=== PATIENT | male | born 1955 | race Two or more races ===

== ENCOUNTER 2018-08-29 08:43 | Inpatient (IN) | payer OTHER ==
[~2018-08-29] VITALS: Ht 167.6 cm; Wt 81.6 kg
--- NOTE | 2018-08-29 08:43 | NUR ---
ED Nurse Note: BROUGHT IN BY [facility] FROM HOME DUE TO CP, NON-RADIATING, 04/09. A/OX4. PER PT, PAIN IS NOW ALL OVER THE BODY. 325MG ASPIRIN AND 0.4MG NITRO GIVEN BY EMS. NO RHYTHM STRIP CAME WITH THE EMS. CLONIDINE PATCHES NOTED ON THE BILATREAL SHOULDER. PT IS SMILING, JOKING. NO S/S OF SOB AND NO FACIAL GRIMACE NOTED AT THIS TIME. WILL CONTINUE TO MONITOR.
[2018-08-29 08:45] VITALS: BP 145/77
--- NOTE | 2018-08-29 08:50 | NUR ---
ED Nurse Note: BLOOD SPECIMENS COLLECTED BY KAMILEL HUI. SENT DOWN TO THE LAB.
[2018-08-29] MEDS ORDERED: NORTRIPTYLINE H25 M1 PO (08:55)
[2018-08-29] MEDS ORDERED: CLONIDINE1 EAC2 TD (08:55)
[2018-08-29] MEDS ORDERED: SYNTHROID100 MCG ORAL (08:55)
[2018-08-29] MEDS ORDERED: FUROSEMIDE40 MG ORAL (08:55)
[2018-08-29] MEDS ORDERED: BENAZEPRIL HCL40 MG ORAL (08:55)
[2018-08-29] MEDS ORDERED: ELIQUIS5 MG PO (08:55)
[2018-08-29] MEDS ORDERED: SOTALOL PO (08:55)
[2018-08-29] MEDS ORDERED: FISH OIL CAP1000 MG ORAL (08:55)
[2018-08-29] MEDS ORDERED: FOLIC ACID1 M1 PO (08:55)
[2018-08-29] MEDS ORDERED: ASPIRIN-LOW81 MG ORAL (08:55)
[2018-08-29] MEDS ORDERED: LOSARTAN POTAS100 MG ORAL (08:55)
[2018-08-29] MEDS ORDERED: DOK100 M1 PO (08:55)
[2018-08-29] MEDS ORDERED: PROCARDIA XL60 MG ORAL (08:55)
[2018-08-29] MEDS ORDERED: TAMSULOSIN HCL0.4 MG ORAL (08:55)
--- NOTE | 2018-08-29 09:08 | NUR ---
ED Nurse Note: PT REPORTS TO TAKE BASAGLAR 0.8MG DAILY INSULIN FOR DM 2. UNABLE TO INPUT MED RECON FOR THIS MED AT THIS TIME.
[2018-08-29 09:11] LABS: HEMOGLOBIN 11.2 G/DL (14.2-18.0); MEAN CORPUSCULAR VOLUME 78 FL (80-99); PLATELET COUNT 196 K/UL (150-450); RED BLOOD COUNT 4.37 M/UL (4.70-6.10); RED CELL DISTRIBUTION WIDTH 12.9 % (11.6-14.8); WHITE BLOOD COUNT 16.8 K/UL (4.8-10.8)
[2018-08-29 09:24] LABS: ANION GAP 9 mmol/L (5-15); BLOOD UREA NITROGEN 71 mg/dL (7-18); CALCIUM 8.9 MG/DL (8.5-10.1); CARBON DIOXIDE 27 MMOL/L (21-32); CHLORIDE 106 MMOL/L (98-107); SODIUM 142 MMOL/L (136-145)
--- NOTE | 2018-08-29 09:35 | NUR ---
ED Nurse Note: EDUCATED PT THAT URINE NEEDS TO BE COLLECTED, PT VERBALIZED UNDERSTANDING.
[2018-08-29 09:37] LABS: ALANINE AMINOTRANSFERASE 19 U/L (12-78); ALBUMIN 2.9 G/DL (3.4-5.0); ALBUMIN/GLOBULIN RATIO 0.8 (1.0-2.7); ALKALINE PHOSPHATASE 87 U/L (46-116); ASPARTATE AMINO TRANSFERASE 14 U/L (15-37); BILIRUBIN,TOTAL 0.5 MG/DL (0.2-1.0); CKMB 0.6 NG/ML (0.0-3.6); CREATINE KINASE 67 U/L (26-308)
--- NOTE | 2018-08-29 09:43 | Diagnostic Imaging Report ---
Indication: Chest pain Technique: One view of the chest Comparison: none Findings: Lungs and pleural spaces are clear. Heart size is upper limits of normal Impression: No acute process
--- NOTE | 2018-08-29 10:05 | NUR ---
ED Nurse Note: URINE COLLECTED AND SENT DOWN TO THE LAB.
[2018-08-29 10:12] LABS: APPEARANCE,URINE CLEAR; BILIRUBIN, URINE NEGATIVE (NEGATIVE); COLOR,URINE PALE YELLOW; GLUCOSE, URINE (UA) NEGATIVE (NEGATIVE); KETONES,URINE NEGATIVE (NEGATIVE); LEUKOCYTE ESTERASE ,URINE NEGATIVE (NEGATIVE); NITRITE,URINE NEGATIVE (NEGATIVE); PH,URINE 5 (4.5-8.0); PROTEIN,URINE 4+ (NEGATIVE); UROBILINOGEN,URINE NORMAL MG/DL (0.0-1.0)
--- NOTE | 2018-08-29 10:22 | Emergency Room Report ---
History of Present Illness General Chief Complaint: Chest Pain Source: Patient Present Illness HPI This patient states that he has had chest pain and abdominal pain for the past 2 days. He describes the chest pain as left-sided and the abdominal pain is diffuse. He denies fever or chills. He has had nausea but denies vomiting. He denies cough or congestion. He denies dysuria or hematuria. He has no other complaints. Allergies: Coded Allergies: No Known Allergies (Unverified , 08/29/18) Patient History Past Medical History: see triage record, DM, HTN, CAD, AFib, renal disease Social History: Denies: smoking, alcohol use, drug use Reviewed Nursing Documentation: PMH: Agreed; PSxH: Agreed Nursing Documentation-PMH Past Medical History: No History, Except For Hx Diabetes: Yes - DM2 Hx Dialysis: No - CKD Review of Systems All Other Systems: negative except mentioned in HPI Physical Exam Vital Signs Date Time Temp Pulse Resp B/P (MAP) Pulse Ox O2 Delivery O2 Flow Rate FiO2 08/29/18 08:43 98.1 80 18 184/83 98 Room Air Sp02 EP Interpretation: reviewed, normal General Appearance: no apparent distress, alert, GCS 15, non-toxic Head: normocephalic, atraumatic Eyes: bilateral eye normal inspection, bilateral eye PERRL ENT: hearing grossly normal, normal pharynx, no angioedema, normal voice Neck: full range of motion, supple/symm/no masses Respiratory: chest non-tender, lungs clear, normal breath sounds, no respiratory distress, no retraction, no accessory muscle use, speaking full sentences Cardiovascular #1: regular rate, rhythm, no edema Gastrointestinal: normal bowel sounds, soft, non-distended, no guarding, no rebound, tenderness - TTP in the mid abdomen Rectal: deferred Musculoskeletal: back normal, gait/station normal, normal range of motion, non- tender Neurologic: alert, oriented x3, responsive, motor strength/tone normal, sensory intact, speech normal Psychiatric: judgement/insight normal, memory normal, mood/affect normal, no suicidal/homicidal ideation Skin: normal color, no rash, warm/dry, well hydrated Medical Decision Making Diagnostic Impression: Primary Impression: Chest pain Additional Impressions: Abdominal pain Kidney mass Renal insufficiency ER Course This patient presents with all over chest pain and abdominal pain. The patient does have a history of coronary artery disease. He has a murmur on exam. Initial cardiac workup is unremarkable. This includes troponin, EKG, chest x- ray. The patient underwent CT of the abdomen and pelvis given his abdominal pain. She is a noncontrast CT because of the patient's renal function. There is a renal lesion on the right and a possible left renal lesion. This was not able to be fully assessed without IV contrast. Patient will be admitted for further evaluation, monitoring and treatment of his chest pain and abdominal pain. The patient's insurance company requested his transfer. He is stable for transfer. Laboratory Tests Test 08/29/18 09:02 08/29/18 10:00 White Blood Count 16.8 K/UL (4.8-10.8) H Red Blood Count 4.37 M/UL (4.70-6.10) L Hemoglobin 11.2 G/DL (14.2-18.0) L Hematocrit 34.0 % (42.0-52.0) L Mean Corpuscular Volume 78 FL (80-99) L Mean Corpuscular Hemoglobin 25.7 PG (27.0-31.0) L Mean Corpuscular Hemoglobin Concent 33.0 G/DL (32.0-36.0) Red Cell Distribution Width 12.9 % (11.6-14.8) Platelet Count 196 K/UL (150-450) Mean Platelet Volume 6.0 FL (6.5-10.1) L Neutrophils (%) (Auto) % (45.0-75.0) Lymphocytes (%) (Auto) % (20.0-45.0) Monocytes (%) (Auto) % (1.0-10.0) Eosinophils (%) (Auto) % (0.0-3.0) Basophils (%) (Auto) % (0.0-2.0) Differential Total Cells Counted 100 Neutrophils % (Manual) 93 % (45-75) H Lymphocytes % (Manual) 1 % (20-45) L Monocytes % (Manual) 6 % (1-10) Eosinophils % (Manual) 0 % (0-3) Basophils % (Manual) 0 % (0-2) Band Neutrophils 0 % (0-8) Platelet Estimate Adequate Platelet Morphology Normal Microcytosis 1+ Sodium Level 142 MMOL/L (136-145) Potassium Level 3.0 MMOL/L (3.5-5.1) L Chloride Level 106 MMOL/L (98-107) Carbon Dioxide Level 27 MMOL/L (21-32) Anion Gap 9 mmol/L (5-15) Blood Urea Nitrogen 71 mg/dL (7-18) H Creatinine 4.0 MG/DL (0.55-1.30) H Estimate Glomerular Filtration Rate 15.2 mL/min (>60) Glucose Level 109 MG/DL (74-106) H Calcium Level 8.9 MG/DL (8.5-10.1) Total Bilirubin 0.5 MG/DL (0.2-1.0) Aspartate Amino Transferase (AST) 14 U/L (15-37) L Alanine Aminotransferase (ALT) 19 U/L (12-78) Alkaline Phosphatase 87 U/L (46-116) Total Creatine Kinase 67 U/L (26-308) Creatine Kinase MB 0.6 NG/ML (0.0-3.6) Creatine Kinase MB Relative Index 0.8 Troponin I 0.013 ng/mL (0.000-0.056) Total Protein 6.6 G/DL (6.4-8.2) Albumin 2.9 G/DL (3.4-5.0) L Globulin 3.7 g/dL Albumin/Globulin Ratio 0.8 (1.0-2.7) L Urine Color Pending Urine Appearance Pending Urine pH Pending Urine Specific [place] Pending Urine Protein Pending Urine Glucose (UA) Pending Urine Ketones Pending Urine Blood Pending Urine Nitrite Pending Urine Bilirubin Pending Urine Urobilinogen Pending Urine Leukocyte Esterase Pending EKG Diagnostic Results EP Interpretation: A.flutter Rate: normal Rhythm: other - A.flutter ST Segments: other - NSST findings Rhythm Strip Diag. Results EP Interpretation: yes Rate: 80's Rhythm: no PVC's, no ectopy, other - A.flutter Chest X-Ray Diagnostic Results Chest X-Ray Diagnostic Results : Chest X-Ray Ordered: Yes # of Views/Limited/Complete: 1 View Indication: Chest Pain EP Interpretation: Yes Interpretation: no consolidation, no effusion, no pneumothorax, no acute cardiopulmonary disease Impression: No acute disease Electronically Signed by: Charlotte Davis, CT/MRI/US Diagnostic Results CT/MRI/US Diagnostic Results : Imaging Test Ordered: CT abd/pelvis Impression Impression: No definite acute process Trace pelvic fluid. Of uncertain significance but not physiologic in a male patient Numerous renal cysts bilaterally. Apparent right renal solid lesion, more questionable left renal solid lesion. Further evaluation with contrast CT recommended if patient unable to tolerate. If not, then further evaluation with ultrasound is recommended Subcentimeter low-attenuation renal lesions, too small to characterize, most likely benign simple cysts. No further follow-up of these is recommended Splenomegaly L1 vertebral body wedge/vertebra plana compression fracture deformity resulting in 60% height loss. Age indeterminate. Consider MRI for better characterization if this is clinically significant Other findings as noted, including bilateral superficial femoral arterial stents , degenerative changes of the lumbosacral junction and sacroiliac joints, hypertrophic left adrenal The CT scanner at [facility] is accredited by the [employer] and the scans are performed using protocols designed to limit radiation exposure to as low as reasonably achievable to attain images of sufficient resolution adequate for diagnostic evaluation. Last Vital Signs Date Time Temp Pulse Resp B/P (MAP) Pulse Ox O2 Delivery O2 Flow Rate FiO2 08/29/18 08:45 99.4 84 18 145/77 98 Room Air Status: improved Disposition: XFER SHT-TRM HOSP Condition: Stable Referrals: [facility],REFERRING (PCP) Charlotte Davis DO Aug 29, 2018 10:22
--- NOTE | 2018-08-29 10:38 | NUR ---
ED Nurse Note: PT REQUESTED PAIN MEDICATION. NOTIFIED DR. ELIAS. NO NEW ORDERS RECEIVED YET.
--- NOTE | 2018-08-29 10:43 | NUR ---
ED Nurse Note: PT WENT DOWN FOR CT
--- NOTE | 2018-08-29 10:58 | NUR ---
ED Nurse Note: PT BACK FROM CT. VSS. NO S/S OF DISTRESS.
--- NOTE | 2018-08-29 11:22 | Diagnostic Imaging Report ---
Indication: Abdominal pain for the last 2 days Technique: Spiral acquisitions obtained through the abdomen and pelvis. No oral contrast utilized, per emergency room physician request No IV contrast utilized, per referring physician request.. Multiplanar reconstructions were generated. Total dose length product 721.82 mGycm. CTDIvol(s) 13.88 mGy. Dose reduction achieved using automated exposure control Comparison: None Findings: Lack of enteric contrast limits assessment of the GI tract. There is colonic diverticulosis. No evidence of diverticulitis. There is equivocal mild wall thickening of the distal descending and proximal sigmoid colon, more likely artifact of under distention. There is trace fluid within the pelvis. No small bowel distention. No free or loculated intraperitoneal gas. No loculated peritoneal fluid collections. The appendix is normal. The distal esophagus, stomach, duodenum are unremarkable. There are small bilateral inguinal hernias which contain only fat. Lack of IV contrast limits assessment of the solid organs. There is questionably a solid 3.7 cm mass coming off of the upper pole of the left kidney. This appears masslike on the axial images, but on the reconstructed images in appearance is more suggestive of distortion of the normal renal anatomy by a large interpolar region cyst. Multiple renal cysts are present bilaterally, the largest in the left interpolar region measuring 7 cm long axis dimension. There is a 1.9 cm mass coming off of the interpolar region of the right kidney which appears solid. There are multiple subcentimeter low-attenuation renal lesions which are too small to characterize as well. The liver, gallbladder, bile ducts, pancreas are unremarkable. The spleen is enlarged, measuring 14 cm long axis dimension. The left adrenal is somewhat hypertrophic. The right adrenal is unremarkable. No retroperitoneal or mesenteric mass or adenopathy. No pelvic mass or adenopathy. The prostate is somewhat enlarged, measuring 5 cm transverse dimension. It contains some calcifications. There is a wedge/vertebra plana compression fracture deformity of the L1 vertebral body. This demonstrates approximately 60% height loss. The age is indeterminant although sclerosis suggests that this is not acute. There are degenerative changes of the lumbosacral junction. There is narrowing of the bilateral sacroiliac joints. Vascular stents are seen within the bilateral proximal superficial femoral arteries. The included lung bases are clear. Impression: No definite acute process Trace pelvic fluid. Of uncertain significance but not physiologic in a male patient Numerous renal cysts bilaterally. Apparent right renal solid lesion, more questionable left renal solid lesion. Further evaluation with contrast CT recommended if patient unable to tolerate. If not, then further evaluation with ultrasound is recommended Subcentimeter low-attenuation renal lesions, too small to characterize, most likely benign simple cysts. No further follow-up of these is recommended Splenomegaly L1 vertebral body wedge/vertebra plana compression fracture deformity resulting in 60% height loss. Age indeterminate. Consider MRI for better characterization if this is clinically significant Other findings as noted, including bilateral superficial femoral arterial stents, degenerative changes of the lumbosacral junction and sacroiliac joints, hypertrophic left adrenal The CT scanner at [facility] is accredited by the [employer] and the scans are performed using protocols designed to limit radiation exposure to as low as reasonably achievable to attain images of sufficient resolution adequate for diagnostic evaluation.
[2018-08-29] MEDS ORDERED: Morphine Sulfate 4mg/ml Inj (IV USE ONLY) IVP ONE (12:15)
[2018-08-29 12:24] VITALS: BP 156/67
[2018-08-29 14:06] VITALS: BP 152/63
--- NOTE | 2018-08-29 16:45 | NUR ---
ED Nurse Note: TELEPHONE REPORT GIVEN TO KAMILLE TAN FROM 2E. PT WILL BE TRANSFER TOO.
[2018-08-29 17:00] VITALS: BP 162/66
--- NOTE | 2018-08-29 17:10 | NUR ---
TRANSFER TO FLOOR: Patient transferred to ROOM 208-1 as ordered via [facility] with cardiac moniotor with KAMILLE Tenorio. Report given to KAMILLE Montelongo. Belongings given to pt. No s/s of distress.
--- NOTE | 2018-08-29 17:14 | History and Physical ---
History of Present Illness General Date patient seen: Aug 29, 2018 Time patient seen: 17:15 Reason for Hospitalization: Chest Pain Present Illness HPI 63 year old man with history HTN, atrial fibrillation, HTN, DM2, CKD who presents with substernal chest pain and abdominal pain for the past 2 days. He describes the chest pain as left-sided and the abdominal pain is diffuse. He denies fever or chills. He has had nausea but denies vomiting. He denies cough or congestion. He denies dysuria or hematuria. He also reports severe headache during this time without neck stiffness or photophobia. No visual disturbance. No extremity weakness. Family Hx: No CAD or stroke Social Hx: No smoking or alcohol Allergies: Coded Allergies: No Known Allergies (Unverified , 08/29/18) Medication History Scheduled Apixaban (Eliquis), 5 MG PO TWICE A DAY, (Reported) Aspirin (Aspirin EC), 81 MG ORAL DAILY, (Reported) Benazepril Hcl* (Benazepril Hcl*), 40 MG ORAL DAILY, (Reported) Clonidine (Clonidine), 1 EACH TD ONCE A WEEK, (Reported) Fish Oil (Fish Oil 1,000 mg Capsule), 1,000 MG ORAL DAILY, (Reported) Furosemide* (Lasix*), 40 MG ORAL DAILY, (Reported) Levothyroxine Sodium* (Synthroid*), 100 MG ORAL DAILY, (Reported) Losartan Potassium (Losartan Potassium), 100 MG ORAL DAILY, (Reported) Nifedipine (Procardia Xl), 60 MG ORAL TWICE A DAY, (Reported) Tamsulosin Hcl (Tamsulosin Hcl*), 0.4 MG ORAL BEDTIME, (Reported) Scheduled PRN Nortriptyline Hcl (Nortriptyline Hcl), 25 MG PO NEEDED PRN for Itching, ( Reported) Miscellaneous Medications Docusate Sodium (Dok), 100 MG PO, (Reported) Folic Acid (Folic Acid), 1 MG PO, (Reported) Sotalol HCl (Sotalol), 80 MG PO, (Reported) Patient History Healthcare decision maker Resuscitation status Advanced Directive on File Review of Systems Constitutional: Denies: chills, sweats, fever Eye: Denies: eye pain, blurred vision Respiratory: Denies: cough, orthopnea, shortness of breath Cardiovascular: Reports: chest pain; Denies: edema, palpitations Gastrointestinal: Reports: abdominal pain, nausea; Denies: constipation, diarrhea, vomiting Musculoskeletal: Reports: back pain, gout, joint pain Skin: Reports: rash, change in color Neurological: Reports: headache; Denies: numbness, paresthesia, seizure, tremors, focal weakness Endocrine: Denies: excessive sweating Physical Exam General Appearance: alert, mild distress HEENT: normocephalic, atraumatic, anicteric, mucous membranes moist, PERRL Neck: non-tender, normal alignment, supple Respiratory/Chest: lungs clear, normal breath sounds, no respiratory distress, no accessory muscle use Cardiovascular/Chest: normal peripheral pulses, normal rate, regular rhythm, no gallop/murmur Abdomen: non tender, soft, no organomegaly, no mass Extremities: normal range of motion, non-tender, normal inspection, no calf tenderness Skin Exam: normal pigmentation, warm/dry Neurologic: disease education specialist II-XII grossly normal, no motor/sensory deficits, alert, oriented x 3 Last 24 Hour Vital Signs Date Time Temp Pulse Resp B/P (MAP) Pulse Ox O2 Delivery O2 Flow Rate FiO2 08/29/18 17:10 98.9 78 18 162/66 100 Room Air 08/29/18 17:00 98.9 78 18 162/66 100 Room Air 08/29/18 14:06 99.4 69 22 152/63 95 Room Air 08/29/18 12:42 99.4 08/29/18 12:24 85 20 156/67 99 Room Air 08/29/18 08:45 99.4 84 18 145/77 98 Room Air 08/29/18 08:45 84 18 Room Air 08/29/18 08:43 98.1 80 18 184/83 98 Room Air Laboratory Tests Test 08/29/18 09:02 08/29/18 10:00 White Blood Count 16.8 K/UL (4.8-10.8) H Red Blood Count 4.37 M/UL (4.70-6.10) L Hemoglobin 11.2 G/DL (14.2-18.0) L Hematocrit 34.0 % (42.0-52.0) L Mean Corpuscular Volume 78 FL (80-99) L Mean Corpuscular Hemoglobin 25.7 PG (27.0-31.0) L Mean Corpuscular Hemoglobin Concent 33.0 G/DL (32.0-36.0) Red Cell Distribution Width 12.9 % (11.6-14.8) Platelet Count 196 K/UL (150-450) Mean Platelet Volume 6.0 FL (6.5-10.1) L Neutrophils (%) (Auto) % (45.0-75.0) Lymphocytes (%) (Auto) % (20.0-45.0) Monocytes (%) (Auto) % (1.0-10.0) Eosinophils (%) (Auto) % (0.0-3.0) Basophils (%) (Auto) % (0.0-2.0) Differential Total Cells Counted 100 Neutrophils % (Manual) 93 % (45-75) H Lymphocytes % (Manual) 1 % (20-45) L Monocytes % (Manual) 6 % (1-10) Eosinophils % (Manual) 0 % (0-3) Basophils % (Manual) 0 % (0-2) Band Neutrophils 0 % (0-8) Platelet Estimate Adequate Platelet Morphology Normal Microcytosis 1+ Sodium Level 142 MMOL/L (136-145) Potassium Level 3.0 MMOL/L (3.5-5.1) L Chloride Level 106 MMOL/L (98-107) Carbon Dioxide Level 27 MMOL/L (21-32) Anion Gap 9 mmol/L (5-15) Blood Urea Nitrogen 71 mg/dL (7-18) H Creatinine 4.0 MG/DL (0.55-1.30) H Estimat Glomerular Filtration Rate 15.2 mL/min (>60) Glucose Level 109 MG/DL (74-106) H Calcium Level 8.9 MG/DL (8.5-10.1) Total Bilirubin 0.5 MG/DL (0.2-1.0) Aspartate Amino Transf (AST/SGOT) 14 U/L (15-37) L Alanine Aminotransferase (ALT/SGPT) 19 U/L (12-78) Alkaline Phosphatase 87 U/L (46-116) Total Creatine Kinase 67 U/L (26-308) Creatine Kinase MB 0.6 NG/ML (0.0-3.6) Creatine Kinase MB Relative Index 0.8 Troponin I 0.013 ng/mL (0.000-0.056) Total Protein 6.6 G/DL (6.4-8.2) Albumin 2.9 G/DL (3.4-5.0) L Globulin 3.7 g/dL Albumin/Globulin Ratio 0.8 (1.0-2.7) L Urine Color Pale yellow Urine Appearance Clear Urine pH 5 (4.5-8.0) Urine Specific [place] 1.015 (1.005-1.035) Urine Protein 4+ (NEGATIVE) H Urine Glucose (UA) Negative (NEGATIVE) Urine Ketones Negative (NEGATIVE) Urine Blood 2+ (NEGATIVE) H Urine Nitrite Negative (NEGATIVE) Urine Bilirubin Negative (NEGATIVE) Urine Urobilinogen Normal MG/DL (0.0-1.0) Urine Leukocyte Esterase Negative (NEGATIVE) Urine RBC 2-4 /HPF (0 - 0) H Urine WBC 0 /HPF (0 - 0) Urine Squamous Epithelial Cells Occasional /LPF Urine Bacteria Occasional /HPF (NONE) Height (Feet): 5 Height (Inches): 6.00 Weight (Pounds): 180 Medications Current Medications Medications (Trade) Dose Ordered Sig/Swathi Route PRN Reason Start Time Stop Time Status Last Admin Dose Admin Acetaminophen (Tylenol) 650 mg Q4H PRN ORAL Mild Pain (Pain Scale 1-3) 08/29/18 17:15 09/28/18 17:14 UNV Aspirin (Ecotrin) 81 mg DAILY ORAL 08/30/18 09:00 09/29/18 08:59 UNV Benazepril HCl (Lotensin) 40 mg DAILY ORAL 08/30/18 09:00 09/29/18 08:59 UNV Dextrose (Dextrose 50%) 25 ml Q30M PRN IV Hypoglycemia 08/29/18 17:15 09/28/18 17:14 UNV Dextrose (Dextrose 50%) 50 ml Q30M PRN IV Hypoglycemia 08/29/18 17:15 09/28/18 17:14 UNV Docusate Sodium (Colace) 100 mg EVERY 12 HOURS ORAL 08/29/18 21:00 09/28/18 20:59 UNV Folic Acid (Folate) 1 mg DAILY ORAL 08/30/18 09:00 09/29/18 08:59 UNV Furosemide (Lasix) 40 mg DAILY ORAL 08/30/18 09:00 09/29/18 08:59 UNV Levothyroxine Sodium (Synthroid) 100 mcg DAILY ORAL 08/30/18 09:00 09/29/18 08:59 UNV Lorazepam (Ativan 2mg/ml 1ml) 0.5 mg Q4H PRN IV For Anxiety 08/29/18 17:15 09/05/18 17:14 UNV Losartan Potassium (Cozaar) 100 mg DAILY ORAL 08/30/18 09:00 09/29/18 08:59 UNV Nortriptyline HCl (Pamelor) 25 mg NEEDED PRN ORAL Itching 08/29/18 17:15 09/28/18 17:14 UNV Ondansetron HCl (Zofran) 4 mg Q6H PRN IVP Nausea & Vomiting 08/29/18 17:15 09/28/18 17:14 UNV Sotalol HCl (Betapace) 80 mg DAILY ORAL 08/30/18 09:00 09/29/18 08:59 UNV Tamsulosin HCl (Flomax) 0.4 mg BEDTIME ORAL 08/29/18 21:00 09/28/18 20:59 UNV Assessment/Plan Assessment/Plan #Chest pain without acutely ischemic EKG and negative initial trop #history of Atrial fibrillation on Eliquis #history of HTN -admit to telemetry unit -check serial cardiac enzymes -cardiac monitoring -EKG -continue sotalol -hold ACEI/ARB/Lasix and monitor renal function, unclear if he has WHIT #Leukocytosis -no definite infectious process identified at this time -hold antibiotics for now -repeat CBC in AM #Hypokalemia -hold repletion given elevated creatinine -repeat BMP in AM #Headache -treat symptomatically with IV Dilaudid, Ativan -Check stat head CT, if negative can resume Eliquis #CKD, unknown baseline creatinine #BPH -hold nephrotoxic meds and check BMP in AM #Type 2 DM -lispro sliding scale for now VTE PPx Eliquis Full Code MIPS ([employer]-based Incentive Payment System) Applicable CPT: 27101, 63657 ~CHECK ALL THAT ARE MET: ~~Measure #5 (CHF): All ages. Prescribe ALMA/ARB upon discharge for patients with left ventricular systolic dysfunction. If not, the reason is clearly documented in the medical chart. ~~Measure #8 (CHF):~All ages. Prescribe a beta destiny upon discharge for patients with left ventricular systolic dysfunction. If not, the reason is clearly documented in the medical chart. ~~Measure #47:~~Advance care plan or surrogate decision maker documented in the medical record. XMeasure #130 The provider has documented, updated, or reviewed the patients current medication list and has documented it in the patients note. ~ XMeasure #374 (All): Send report to referring provider. ~~Measure #407(Sepsis due to MSSA bacteremia): Age 18+~Patient treated with a beta-lactam antibiotic (Nafcillin, Oxacillin or Cefazolin) as definitive therapy. MEDICAL COMPLEXITY High complexity medical decision making (need 2/3 categories) Problem - need 4 points XAcute/new problem with new plan for workup (4 points, 1 max) XAcute/new problem without additional workup (3 points, 1 max) XUnstable chronic problem actively being managed (2 point each, 2 max) XStable chronic problem actively being managed (1 point each, 2 max) XSelf-limited/transient process (constipation, muscle ache, etc) (1 point each, 2 max) ~ Data - need 4 points XReviewed labs/imaging studies (1 points, 2 max) XIndependent review of imaging (EKG, xrays, etc) (2 points, 2 max) XDiscussed case with consult/other MD/RN (2 points, 2 max) High Risk - qualify if have one of the following: XSevere exacerbation of acute problem, acute mental status change, IV narcotics , monitoring drug levels (vancomycin, INR, tacrolimus etc) I spent 70 minutes on this patient's case, and 35 minutes was dedicated to counseling and/or care coordination. Time of note may not reflect time of encounter. Tray Cagle MD Aug 29, 2018 17:14
[2018-08-29] MEDS ORDERED: LORazepam Inj 2mg/ml 1ml IV PRN (17:15)
[2018-08-29] MEDS ORDERED: Nortriptyline 25mg cap ORAL PRN ×2 (17:15→17:30)
--- NOTE | 2018-08-29 17:36 | Discharge Summary ---
Discharge Summary Hospital Course Date of Admission Aug 29, 2018 at 15:17 Date of Discharge Admitting Diagnosis CHEST PAIN ,ACS HPI [facility] Piero Wang is a 63 year old male who was admitted on Aug 29, 2018 at 15: 17 for Chest Pain,Acute Coronary Syndrome Hospital Course #Chest pain without acutely ischemic EKG and negative initial trop #history of Atrial fibrillation on Eliquis #history of HTN -admit to telemetry unit -check serial cardiac enzymes -cardiac monitoring -EKG -continue sotalol -hold ACEI/ARB/Lasix and monitor renal function, unclear if he has WHIT #Leukocytosis -no definite infectious process identified at this time -hold antibiotics for now -repeat CBC in AM #Hypokalemia -repeat BMP in AM #Headache -treat symptomatically with Dilaudid, Ativan -Check stat head CT #CKD, unknown baseline creatinine #BPH -hold nephrotoxic meds and check BMP in AM -continue Flomax #Type 2 DM -lispro sliding scale for now VTE PPx Eliquis Full Code Discharge Discharge Disposition Patient was discharged to Tray Cagle MD Aug 29, 2018 17:36
--- NOTE | 2018-08-29 18:15 | NUR ---
NURSE NOTES: Pt brought up from ER/Cat Scan, breathing easily on room air, c/o SOB and also c/o aching/nonradiating CP of 10/10. Pt put on 2 lpm nasal cannula. at bedside. Vital signs stable with Afib @ 75 on monitor. IV access left a/c flushed with 10 ml NS and locked. Abdomen soft/supple. Moving all extremities well. Lungs clear bilaterally.
--- NOTE | 2018-08-29 18:25 | Diagnostic Imaging Report ---
EXAM: CT Head Without Intravenous Contrast CLINICAL HISTORY: PAIN TECHNIQUE: Axial computed tomography images of the head/brain without intravenous contrast. CTDI is 70 mGy and DLP is 1439 mGy-cm. One or more of the following dose reduction techniques were used: automated exposure control, adjustment of the mA and/or kV according to patient size, use of iterative reconstruction technique. COMPARISON: No relevant prior studies available. FINDINGS: Brain: No acute intracranial hemorrhage or cortical ischemia. Right parietal chronic encephalomalacia. Chronic small vessel ischemic changes. Ventricles: Unremarkable. No ventriculomegaly. Bones/joints: Unremarkable. No acute fracture. Soft tissues: Unremarkable. Sinuses: Mild maxillary sinus mucosal thickening. Mastoid air cells: Unremarkable as visualized. IMPRESSION: No acute intracranial hemorrhage or cortical ischemia. Right parietal chronic encephalomalacia. Chronic small vessel ischemic changes.
[2018-08-29] MEDS ORDERED: Eliquis 2.5mg tablet ORAL SCH (18:45)
--- NOTE | 2018-08-29 19:30 | NUR ---
NURSE NOTES: Received report from Uriel Jacobo RN. Pt is in the bed c/o of CP 12/08, 2L NC applied and temp 101.3. Bed in lowest position, 2 side rails up, breaks are engaged. Call light and side table are w/in [id number] degree AVB, 82 bpm. Will follow plans of care.
[2018-08-29 19:55] VITALS: BP 151/80
[2018-08-29 20:00] VITALS: BP 117/63
--- NOTE | 2018-08-29 20:30 | NUR ---
NURSE NOTES: Pt c/o / chest pain described as "aching" and stating unrelieved by tylenol. No other active orders for pain medication at this time. EKG done and placed in chart. Will relay results to MD. Message left for MD Edouard, covering for MD Clay, requesting call back. Awaiting call back for further instructions. Will continue to monitor patient.
--- NOTE | 2018-08-29 20:50 | NUR ---
NURSE NOTES: MD Edouard return call and informed of pt condition. EKG showed sinus rhythm with 1st degree HB and HR of 60. Per MD, order serial troponins, control anxiety, and place order for morphine 2mg IVP Q4HR PRN. Will f/u with MD for any changes in patient condition. Orders noted and carried out.
[2018-08-29] MEDS ORDERED: Tamsulosin 0.4mg cap ORAL SCH ×2 (21:00)
[2018-08-29] MEDS ORDERED: Docusate 100mg cap ORAL SCH (21:00)
--- NOTE | 2018-08-29 21:00 | NUR ---
NURSE NOTES: Lab called for troponin that was supposed to be drawn at 1700. Lab to come draw troponin STAT.
[2018-08-29] MEDS: Docusate 100mg cap ORAL SCH (22:04)
[2018-08-29] MEDS: NovoLOG Insulin Flexpen SUBQ SCH (22:05)
--- NOTE | 2018-08-29 22:45 | NUR ---
NURSE NOTES: Pt heart rate and rhythm changing between afib, sinus italia with 1st degree HB, and sinus rhythm with second degree type 1 and type 2. HR as low as 43 but also up to 70s and 80s. MD Edouard notified. Per MD, MD White will be post anesthesia nurse consulting on the case. MD Edouard to notify. Will f/u with MD White as appropriate. Marcelina, primary RN for patient, notified of updates.
--- NOTE | 2018-08-29 23:14 | NUR ---
NURSE NOTES: MD White informed of pt change in rate and rhythm. Per MD, do STAT EKG and communicate results with MD LORENZO. Communicated with Marcelina, primary care RN, and endorsed plan of care. JORDY Pack aware of patient condition and updates.
--- NOTE | 2018-08-29 23:38 | NUR ---
NURSE NOTES: STAT EKG complete.
--- NOTE | 2018-08-29 23:57 | NUR ---
NURSE NOTES: Communicated EKG results and home/hospital medication list with MD White. Per MD, d/c the sotalol order and continue to monitor patient. Per MD, if pt goes into sinus italia wake patient up and see if bradycardia resolves. If bradycardia does not resolve upon waking patient then notify MD White. Orders noted and carried out. Communicated updates with Marcelina primary care RN. Will continue to monitor patient.
[2018-08-30] VITALS: BP 117/63
--- NOTE | 2018-08-30 01:57 | NUR ---
NURSE NOTES: Pt is sleeping w/o distress in 3L NC, HR 71 in the monitor, easily arousable. Will continue to monitor.
[2018-08-30 05:00] VITALS: BP 126/54
[2018-08-30] MEDS: Morphine Sulfate 2mg/ml Inj(IV/IM USE ONLY) IVP PRN ×2 (05:28→18:41)
[2018-08-30] MEDS: NovoLOG Insulin Flexpen SUBQ SCH ×4 (07:04→21:13)
--- NOTE | 2018-08-30 07:30 | NUR ---
HAND-OFF: Report given to William Ortiz RN. VSS, Pt is sleeping w/o distress.
--- NOTE | 2018-08-30 07:37 | NUR ---
NURSE NOTES: received patient report from reva rodriguez. patient is on bed awake. not in acute distress. no acute events overnight. HR on the 80s.will follow plan of care.
[2018-08-30 08:00] VITALS: BP 94/50
[2018-08-30] MEDS: Docusate 100mg cap ORAL SCH ×2 (08:09→21:03)
[2018-08-30] MEDS: Aspirin EC 81mg tab ORAL SCH ×2 (08:09→08:12)
[2018-08-30] MEDS: Eliquis 2.5mg tablet ORAL SCH ×2 (08:10→17:08)
[2018-08-30 08:43] LABS: HEMATOCRIT 28.7 % (42.0-52.0); HEMOGLOBIN 9.4 G/DL (14.2-18.0); MEAN CORPUSCULAR VOLUME 78 FL (80-99); PLATELET COUNT 138 K/UL (150-450); RED BLOOD COUNT 3.67 M/UL (4.70-6.10); RED CELL DISTRIBUTION WIDTH 12.9 % (11.6-14.8); WHITE BLOOD COUNT 6.5 K/UL (4.8-10.8)
[2018-08-30] MEDS ORDERED: Aspirin EC 81mg tab ORAL SCH (09:00)
[2018-08-30] MEDS ORDERED: Losartan 50mg tab ORAL SCH ×2 (09:00)
[2018-08-30] MEDS ORDERED: Sotalol 80mg tab ORAL SCH ×2 (09:00)
[2018-08-30] MEDS ORDERED: Furosemide 40mg tab ORAL SCH ×2 (09:00)
[2018-08-30 09:21] LABS: ALANINE AMINOTRANSFERASE 11 U/L (12-78); ALBUMIN 2.4 G/DL (3.4-5.0); ALBUMIN/GLOBULIN RATIO 0.7 (1.0-2.7); ALKALINE PHOSPHATASE 71 U/L (46-116); ANION GAP 10 mmol/L (5-15); ASPARTATE AMINO TRANSFERASE 14 U/L (15-37); BILIRUBIN,TOTAL 0.4 MG/DL (0.2-1.0); BLOOD UREA NITROGEN 77 mg/dL (7-18); CALCIUM 8.4 MG/DL (8.5-10.1); CARBON DIOXIDE 26 MMOL/L (21-32); CHLORIDE 102 MMOL/L (98-107); CREATININE 4.7 MG/DL (0.55-1.30); POTASSIUM 3.1 MMOL/L (3.5-5.1); SODIUM 138 MMOL/L (136-145)
[2018-08-30 12:00] VITALS: BP 104/51
--- NOTE | 2018-08-30 13:43 | Consultation ---
Consult Note Consult Note asked to eval for worsening renal fasilure Cr 4 up to 4.7 63 year old man with history HTN, atrial fibrillation, HTN, DM2, CKD who presents with substernal chest pain and abdominal pain for the past 2 days. He describes the chest pain as left-sided and the abdominal pain is diffuse. He denies fever or chills. He has had nausea but denies vomiting. He denies cough or congestion. He denies dysuria or hematuria. He also reports severe headache during this time without neck stiffness or photophobia. No visual disturbance. No extremity weakness. examined interviewed data reviewed Assessment/Plan Known CKD now superimposed acute renal failure 4+ Proteinuria HTN DM Apparent right renal solid lesion, more questionable left renal solid lesion. Splenomegaly L1 vertebral body wedge/vertebra plana compression fracture deformity resulting in 60% height loss. bilateral superficial femoral arterial stents, Hydrate Flomax Kidney RICARDO urine studies Avoid nephrotoxics Anemia retana fluid challenge per orders Gilles Lebron MD Aug 30, 2018 13:42
--- NOTE | 2018-08-30 14:45 | Consultation ---
Consult Note Consult Note Cardiology for Dr. White Full note dictated # [id number] Ashley Alatorre MD Aug 30, 2018 14:45
--- NOTE | 2018-08-30 14:47 | Cardiac Electrophysiology PN ---
Subjective Subjective [id number] Objective Last 24 Hour Vital Signs Date Time Temp Pulse Resp B/P (MAP) Pulse Ox O2 Delivery O2 Flow Rate FiO2 08/30/18 12:00 96.6 56 18 104/51 (68) 100 08/30/18 09:00 Nasal Cannula 3.0 08/30/18 08:00 51 08/30/18 08:00 99.0 52 18 94/50 (65) 100 08/30/18 07:01 98.6 08/30/18 05:57 98.6 08/30/18 05:00 101.0 60 20 126/54 (78) 99 08/30/18 03:46 65 08/30/18 00:00 97.5 63 20 117/63 (81) 100 08/29/18 23:42 63 08/29/18 21:04 58 08/29/18 21:00 Nasal Cannula 3.0 08/29/18 20:58 43 08/29/18 20:43 82 08/29/18 19:55 101.3 80 20 151/80 (103) 96 08/29/18 18:15 Nasal Cannula 2.0 08/29/18 17:10 98.9 78 18 162/66 100 Room Air 08/29/18 17:00 98.9 78 18 162/66 100 Room Air Intake and Output 08/29/18 08/30/18 19:00 07:00 Intake Total 250 ml Balance 250 ml Intake Oral 250 ml # Voids 3 Laboratory Tests Test 08/29/18 21:05 08/30/18 06:02 08/30/18 06:05 Troponin I 0.039 ng/mL (0.000-0.056) White Blood Count 6.5 K/UL (4.8-10.8) # Red Blood Count 3.67 M/UL (4.70-6.10) L Hemoglobin 9.4 G/DL (14.2-18.0) L Hematocrit 28.7 % (42.0-52.0) L Mean Corpuscular Volume 78 FL (80-99) L Mean Corpuscular Hemoglobin 25.7 PG (27.0-31.0) L Mean Corpuscular Hemoglobin Concent 32.8 G/DL (32.0-36.0) Red Cell Distribution Width 12.9 % (11.6-14.8) Platelet Count 138 K/UL (150-450) L Mean Platelet Volume 6.8 FL (6.5-10.1) Neutrophils (%) (Auto) % (45.0-75.0) Lymphocytes (%) (Auto) % (20.0-45.0) Monocytes (%) (Auto) % (1.0-10.0) Eosinophils (%) (Auto) % (0.0-3.0) Basophils (%) (Auto) % (0.0-2.0) Differential Total Cells Counted 100 Neutrophils % (Manual) 88 % (45-75) H Lymphocytes % (Manual) 6 % (20-45) L Monocytes % (Manual) 5 % (1-10) Eosinophils % (Manual) 1 % (0-3) Basophils % (Manual) 0 % (0-2) Band Neutrophils 0 % (0-8) Platelet Estimate Decreased L Platelet Morphology Normal Anisocytosis 1+ Sodium Level 138 MMOL/L (136-145) Potassium Level 3.1 MMOL/L (3.5-5.1) L Chloride Level 102 MMOL/L (98-107) Carbon Dioxide Level 26 MMOL/L (21-32) Anion Gap 10 mmol/L (5-15) Blood Urea Nitrogen 77 mg/dL (7-18) H Creatinine 4.7 MG/DL (0.55-1.30) H Estimat Glomerular Filtration Rate 12.7 mL/min (>60) Glucose Level 144 MG/DL (74-106) H Calcium Level 8.4 MG/DL (8.5-10.1) L Total Bilirubin 0.4 MG/DL (0.2-1.0) Aspartate Amino Transf (AST/SGOT) 14 U/L (15-37) L Alanine Aminotransferase (ALT/SGPT) 11 U/L (12-78) L Alkaline Phosphatase 71 U/L (46-116) Total Protein 5.9 G/DL (6.4-8.2) L Albumin 2.4 G/DL (3.4-5.0) L Globulin 3.5 g/dL Albumin/Globulin Ratio 0.7 (1.0-2.7) L C-Reactive Protein, Quantitative 16.8 mg/dL (0.00-0.90) H Isidoro Magallanes MD Aug 30, 2018 14:47
[2018-08-30] MEDS: D5NS 1,000 ML IV SCH ×3 (15:34→18:04)
[2018-08-30 15:43] VITALS: BP 145/54
--- NOTE | 2018-08-30 15:58 | NUR ---
NURSE NOTES: left a message to dr bravo regarding patient bolus of [id number], Albumin 500ml and NS @75 ml per hour. patient vital signs were rechecked and BP 145/54, 173/100. medication were put on hold and awaits callback from dr bravo.
--- NOTE | 2018-08-30 16:42 | General Progress Note ---
Assessment/Plan Assessment/Plan #Chest pain without acutely ischemic EKG and negative initial trop #history of Atrial fibrillation on Eliquis #history of HTN -Cont telemetry -serial cardiac enzymes -EKG -sotalol per cardiology -hold ACEI/ARB/Lasix and monitor renal function, unclear if he has WHIT #Leukocytosis -no definite infectious process identified at this time -hold antibiotics for now -repeat CBC in AM #Hypokalemia -hold repletion given elevated creatinine -repeat BMP in AM #Headache -treat symptomatically with IV Dilaudid, Ativan -Check stat head CT, if negative can resume Eliquis #CKD, unknown baseline creatinine #BPH -hold nephrotoxic meds and check BMP in AM #Type 2 DM -lispro sliding scale for now VTE PPx Eliquis Full Code Subjective Date patient seen: Aug 30, 2018 Time patient seen: 09:45 ROS Limited/Unobtainable: No Allergies: Coded Allergies: No Known Allergies (Unverified , 08/29/18) Subjective Multiple arrhythmias overnight, 1st, 2nd degree block on monitor, EP cardiology called to see. Remains hypotensive, c/o headache, some chest pain Objective Last 24 Hour Vital Signs Date Time Temp Pulse Resp B/P (MAP) Pulse Ox O2 Delivery O2 Flow Rate FiO2 08/30/18 15:43 145/54 (84) 08/30/18 12:00 96.6 56 18 104/51 (68) 100 08/30/18 12:00 48 08/30/18 09:00 Nasal Cannula 3.0 08/30/18 08:00 51 08/30/18 08:00 99.0 52 18 94/50 (65) 100 08/30/18 07:01 98.6 08/30/18 05:57 98.6 08/30/18 05:00 101.0 60 20 126/54 (78) 99 08/30/18 03:46 65 08/30/18 00:00 97.5 63 20 117/63 (81) 100 08/29/18 23:42 63 08/29/18 21:04 58 08/29/18 21:00 Nasal Cannula 3.0 08/29/18 20:58 43 08/29/18 20:43 82 08/29/18 19:55 101.3 80 20 151/80 (103) 96 08/29/18 18:15 Nasal Cannula 2.0 08/29/18 17:10 98.9 78 18 162/66 100 Room Air 08/29/18 17:00 98.9 78 18 162/66 100 Room Air Intake and Output 08/29/18 08/30/18 19:00 07:00 Intake Total 250 ml Balance 250 ml Intake Oral 250 ml # Voids 3 Laboratory Tests 08/29/18 21:05: Troponin I 0.039 08/30/18 06:02: White Blood Count 6.5#, Red Blood Count 3.67L, Hemoglobin 9.4L, Hematocrit 28.7L , Mean Corpuscular Volume 78L, Mean Corpuscular Hemoglobin 25.7L, Mean Corpuscular Hemoglobin Concent 32.8, Red Cell Distribution Width 12.9, Platelet Count 138L, Mean Platelet Volume 6.8, Neutrophils (%) (Auto) , Lymphocytes (%) ( Auto) , Monocytes (%) (Auto) , Eosinophils (%) (Auto) , Basophils (%) (Auto) , Differential Total Cells Counted 100, Neutrophils % (Manual) 88H, Lymphocytes % (Manual) 6L, Monocytes % (Manual) 5, Eosinophils % (Manual) 1, Basophils % ( Manual) 0, Band Neutrophils 0, Platelet Estimate DecreasedL, Platelet Morphology Normal, Anisocytosis 1+, Sodium Level 138, Potassium Level 3.1L, Chloride Level 102, Carbon Dioxide Level 26, Anion Gap 10, Blood Urea Nitrogen 77H, Creatinine 4.7H, Estimat Glomerular Filtration Rate 12.7, Glucose Level 144H, Calcium Level 8.4L, Total Bilirubin 0.4, Aspartate Amino Transf (AST/SGOT ) 14L, Alanine Aminotransferase (ALT/SGPT) 11L, Alkaline Phosphatase 71, Total Protein 5.9L, Albumin 2.4L, Globulin 3.5, Albumin/Globulin Ratio 0.7L 08/30/18 06:05: C-Reactive Protein, Quantitative 16.8H Height (Feet): 5 Height (Inches): 6.00 Weight (Pounds): 180 Objective General: alert, cooperative, no distress, appears stated age Head: normocephalic, without obvious abnormality, atraumatic Eyes: conjunctivae/corneas clear. PERRL, EOM's intact Throat: lips, mucosa, and tongue normal. MMM Neck: supple, symmetrical, trachea midline, and no JVD Lungs: clear to auscultation bilaterally Heart: regular rate and rhythm, S1, S2 normal, no murmur, click, rub or gallop Abdomen: soft, non-tender, non-distended, bowel sounds normal; no masses or organomegaly Extremities: extremities normal, atraumatic, no cyanosis or edema Pulses: 2+ and symmetric Skin: skin color, texture, turgor normal; no rashes or lesions Neurologic: grossly normal, no focal deficits Gerson Clay MD Aug 30, 2018 16:42
--- NOTE | 2018-08-30 17:52 | NUR ---
NURSE NOTES: left a message to dr avalos to callback facility regarding patient blood pressure. awaits callback an dnew order.
--- NOTE | 2018-08-30 17:57 | NUR ---
NURSE NOTES: dr lombardi called and ordered to continue NS 75 ml per hour, hold albumin and bolus NS of 500ml until dr bravo calls back for further order.
--- NOTE | 2018-08-30 19:47 | NUR ---
HAND-OFF: Report given to doreen rodriguez.
--- NOTE | 2018-08-30 19:48 | NUR ---
NURSE NOTES: Received report from KAMILLE Coreas. Patient in bed awake AOx4 showing no signs of acute distress. Respiration even and non labored on room air. No SOB noted. Bed in lowest position. Call light within reach. All needs attended and met. Will continue plan of care.
[2018-08-30 20:00] VITALS: BP 182/96
[2018-08-30] MEDS ORDERED: Tamsulosin 0.4mg cap ORAL SCH (21:00)
--- NOTE | 2018-08-30 21:45 | Consultation ---
DATE OF CONSULTATION: CARDIOLOGY CONSULTATION This note is a Cardiology consult coverage for Dr. Jose Juan White. CONSULTING PHYSICIAN: Ashley Alatorre M.D. REASON FOR CONSULT: Chest pain. HISTORY OF PRESENT ILLNESS: The patient is a 63-year-old man with a history of hypertension, diabetes, and atrial fibrillation/flutter with 5 previous catheter ablation procedures (most recent about two years ago, [facility], Dr. Nguyen), who presented to the emergency room yesterday morning with left-sided chest pain as well as abdominal pain. He had nausea, but no vomiting. His symptoms of chest pain have resolved, but he complains of weakness and generalized body aches. In the emergency room, he was known to have an elevated white blood count of 16,800. He underwent a CT scan. He complains of generalized weakness. MEDICATIONS: Flomax 0.4 mg at bedtime, Protonix 40 mg q.12 h., aspirin 81 mg daily, apixaban 5 mg twice a day, Synthroid 100 mcg daily, Colace 100 mg every 12 hours, insulin sliding scale, morphine as needed, Tylenol as needed. ALLERGIES: No known drug allergies. PAST MEDICAL HISTORY: As noted above. SOCIAL HISTORY: The patient is a nonsmoker and has no history of alcohol or drug abuse. PHYSICAL EXAMINATION: VITAL SIGNS: Blood pressure is 104/51, pulse 56 regular, respirations 18, and afebrile. GENERAL: Alert, well-developed white male, in no acute distress. HEENT: Normocephalic and atraumatic. Pupils are equal, round, and reactive to light. Sclerae anicteric. Oral mucosa moist. NECK: Supple. There is no jugular venous distention. No carotid bruits. LUNGS: Clear to auscultation bilaterally. HEART: Bradycardic, regular, S1-S2 with a 1/6 systolic ejection murmur along the lower left sternal border. ABDOMEN: Soft, nontender. No palpable mass. EXTREMITIES: No cyanosis, clubbing, or edema. NEURO: No focal motor deficits. LABORATORY DATA: White blood count was 16,800 on admission, repeat today is 6500, hemoglobin 9.4, hematocrit 28.7, potassium 3.1, BUN 77, creatinine 4.7. Troponin 0.013, repeat 0.039. EKG is pending. Telemetry shows sinus rhythm and sinus bradycardia with rates in the 40s to 50s. ASSESSMENT AND RECOMMENDATIONS: The patient is a 63-year-old man with a history of hypertension, diabetes, atrial fibrillation and A.flutter status post catheter ablation, chronic kidney disease, who was admitted with chest pain. His troponin levels so far are negative. EKG is pending. He has multiple coronary risk factors and may have ischemia/acute coronary syndrome. Serial troponin levels will be obtained as well as serial EKGs. An echo will be obtained to evaluate left ventricular wall motion and EF as well as valves. We would continue aspirin and start a statin. His low heart rate will prevent use of beta blockers. Stress nuclear study will be obtained if he rules out for myocardial infarction. He likely has intrinsic sinus node disease, but no current indication for pacing as he has no symptomatic bradycardia. Dr. White will continue to follow the patient starting 09/01/2018. Ashley Alatorre M.D. DR: RAY JOB#: [id number] CC:
[2018-08-31] VITALS: BP 122/52
--- NOTE | 2018-08-31 | Consultation ---
DATE OF CONSULTATION: 08/30/2018 CARDIOLOGY CONSULTATION CONSULTING PHYSICIAN: Isidoro Magallanes M.D. REFERRING PHYSICIAN: Gerson Clay M.D. REASON FOR CONSULTATION: Atrial flutter and bradycardia. HISTORY OF PRESENT ILLNESS: The patient is a 63-year-old gentleman with history of hypertension, history of atrial flutter and fibrillation on Eliquis, was admitted to the telemetry for increasing shortness of breath, substernal chest pain, and abdominal pain. He also has diabetes and chronic kidney disease. He denies any fever or chills, no nausea or vomiting. The patient was admitted and a Cardiology consultation was obtained for further evaluation and management. REVIEW OF SYSTEMS: Negative other than what was mentioned in the history of present illness. PAST MEDICAL HISTORY: 1. Hypertension. 2. Diabetes. 3. Atrial fibrillation. 4. Chronic kidney disease. FAMILY HISTORY: Noncontributory. ALLERGIES: He has no known drug allergies. MEDICATIONS: Per reconciliation. PHYSICAL EXAMINATION: VITAL SIGNS: Show blood pressure of 104/51, pulse 56, respiratory rate 18, and temperature 96.6. HEAD AND NECK: Showed no JVD. LUNGS: Clear. CARDIOVASCULAR: Shows regular S1 and S2 with no gallop or murmur. ABDOMEN: Soft. EXTREMITIES: No pitting edema. LABORATORY AND DIAGNOSTIC DATA: His EKG shows sinus rhythm with first-degree AV block. His EKG by telemetry showed atrial flutter. His white count initially was 16.8 and 6.5, hemoglobin is 9.4, hematocrit 28.7, and platelet count 138. Sodium 138, potassium 3.1, BUN of 77, creatinine of 4.7, and glucose of 144. Troponin negative x2. ASSESSMENT AND PLAN: 1. History of atrial flutter. The patient was also in atrial flutter on admission. The patient is on apixaban 5 mg b.i.d. Sotalol was discontinued for bradycardia as well as renal failure. 2. Hypertension, was on benazepril and currently on losartan. Benazepril was discontinued in view of renal failure especially blood pressure was in the 90s. Hold off on blood pressure medication at this time. 3. Bradycardia, heart rate of 50s. was discontinued. 4. Renal failure. Further evaluation by Dr. Lebron. 5. Diabetes. Thank you very much for allowing me to participate in the care of this patient. Please do not hesitate to contact me if you have any questions regarding my evaluation. Sincerely, Isidoro Magallanes M.D. DR: GABY JOB#: [id number] CC:
[2018-08-31] MEDS: D5NS 1,000 ML IV SCH ×2 (03:20→16:40)
[2018-08-31 04:00] VITALS: BP 173/69
[2018-08-31] MEDS: NovoLOG Insulin Flexpen SUBQ SCH ×4 (06:30→22:03)
[2018-08-31 07:16] LABS: HEMATOCRIT 28.8 % (42.0-52.0); HEMOGLOBIN 9.5 G/DL (14.2-18.0); MEAN CORPUSCULAR VOLUME 78 FL (80-99); PLATELET COUNT 126 K/UL (150-450); RED BLOOD COUNT 3.71 M/UL (4.70-6.10); RED CELL DISTRIBUTION WIDTH 12.5 % (11.6-14.8); WHITE BLOOD COUNT 7.3 K/UL (4.8-10.8)
[2018-08-31 07:53] LABS: ALANINE AMINOTRANSFERASE 18 U/L (12-78); ALBUMIN 2.3 G/DL (3.4-5.0); ALBUMIN/GLOBULIN RATIO 0.6 (1.0-2.7); ALKALINE PHOSPHATASE 71 U/L (46-116); ANION GAP 11 mmol/L (5-15); ASPARTATE AMINO TRANSFERASE 16 U/L (15-37); BILIRUBIN,TOTAL 0.5 MG/DL (0.2-1.0); BLOOD UREA NITROGEN 82 mg/dL (7-18); CALCIUM 8.3 MG/DL (8.5-10.1); CARBON DIOXIDE 25 MMOL/L (21-32); CHLORIDE 102 MMOL/L (98-107); CHOLESTEROL 165 MG/DL (< 200); CREATININE 4.7 MG/DL (0.55-1.30); FERRITIN 1346 NG/ML (8-388); GAMMA GLUTAMYL TRANSPEPTIDASE 6 U/L (5-85); HDL CHOLESTEROL 28 MG/DL (40-60); PHOSPHORUS 3.2 MG/DL (2.5-4.9); SODIUM 138 MMOL/L (136-145); TRIGLYCERIDES 287 MG/DL (30-150)
--- NOTE | 2018-08-31 07:55 | NUR ---
HAND-OFF: Report given to KAMILLE Montelongo.
[2018-08-31 08:00] VITALS: BP 112/73
--- NOTE | 2018-08-31 08:00 | NUR ---
NURSE NOTES: Pt awake/alert in bed, breathing easily on room air, denies SOB and denies pain at this time. Pt then turned on side and buried his head in his pillow. Vital signs stable with SR @ 66 on monitor. IV access left a/c flushed with 10 ml NS and locked. Bed left in low position, side rails up x 2 and call light left near pt's hand.
[2018-08-31 08:38] LABS: % IRON SATURATION 6 % (15-50); IRON 10 ug/dL (50-175); TOTAL IRON BINDING CAPACITY 159 ug/dL (250-450)
[2018-08-31] MEDS: Aspirin EC 81mg tab ORAL SCH (08:47)
[2018-08-31] MEDS: Docusate 100mg cap ORAL SCH ×3 (08:47→17:18)
[2018-08-31] MEDS: Eliquis 2.5mg tablet ORAL SCH ×2 (08:53→17:18)
--- NOTE | 2018-08-31 09:32 | NUR ---
CASE MANAGEMENT: INITIAL REVIEW 63 YO M WICHO FROM HOME CC: CP PMHx: DM. CKD. SI:CP. ACS. T 98.1 HR 80 RR 18 B/P 184/83 SATS 98% ON RA WBC 16.8 K 3.1 BUN 77 CR 4.7 GLU 144 CA 8.4 AST 14 ALT 11 TROPONIN 0.039 IS: MORPHINE IV X 1 CT HEAD (IMPRESSION: No acute intracranial hemorrhage or cortical ischemia. Right parietal chronic encephalomalacia. Chronic small vessel ischemic changes) CT ABD/PELVIS (Impression: No definite acute process) PATIENT ADMITTED TO TELE 08/29/2018 @ 1219 DCP: PATIENT TO BE DISCHARGED TO HOME ONCE MEDICALLY CLEARED. PLAN OF CARE: CARDIO EVAL 2D ECHO 08/31/2018 SI:CP. ACS. T 101.3 HR 50 RR 18 B/P 122/52 SATS 95% ON 3L/NC K 3 BUN 82 CR 4.7 GLU 143 BNP 6867 TROPONIN 0.042 IS: IVF @ 75 mL/HR PROTONIX PO Q12H FLOMAX PO QHS ELIQUIS PO BID ASA PO QD INSULIN ASPART SUBQ AC/HS PATIENT ADMITTED TO TELE 08/29/2018 @ 1219 DCP: PATIENT TO BE DISCHARGED TO HOME ONCE MEDICALLY CLEARED. PLAN OF CARE: 2D ECHO Addendum: 09/01/18 at 1753 by Chandni Lancaster CM INTERQUAL MET
[2018-08-31 12:00] VITALS: BP 130/79
--- NOTE | 2018-08-31 13:30 | General Progress Note ---
Assessment/Plan Assessment/Plan #Chest pain without acutely ischemic EKG and negative initial trop #history of Atrial fibrillation on Eliquis #history of HTN -Cont telemetry -serial cardiac enzymes -EKG -sotalol per cardiology -hold ACEI/ARB/Lasix and monitor renal function, unclear if he has WHIT #Leukocytosis #SIRS -Unclear source of SIRS, will ask ID for input and initiation of abx therapy if needed -no definite infectious process identified at this time -repeat CBC, trend temp curve #Hypokalemia -hold repletion given elevated creatinine -repeat BMP in AM #Headache -treat symptomatically with IV Dilaudid, Ativan -Check stat head CT, if negative can resume Eliquis #CKD, unknown baseline creatinine #BPH -hold nephrotoxic meds and check BMP in AM #Type 2 DM -lispro sliding scale for now VTE PPx Eliquis Full Code Subjective Date patient seen: Aug 31, 2018 Time patient seen: 13:25 ROS Limited/Unobtainable: No Allergies: Coded Allergies: No Known Allergies (Unverified , 08/29/18) Subjective Hypertensive and febrile overnight, Tmax 102.4 without clear source. 1st, 2nd degree block on monitor, EP cardiology evaluated him. Remains hypertensive, still c/o headache, some chest pain Objective Last 24 Hour Vital Signs Date Time Temp Pulse Resp B/P (MAP) Pulse Ox O2 Delivery O2 Flow Rate FiO2 08/31/18 04:12 173/69 08/31/18 04:00 98.6 71 18 173/69 (103) 95 08/31/18 04:00 45 08/31/18 00:00 101.3 50 18 122/52 (75) 95 08/31/18 00:00 49 08/30/18 22:37 182/96 08/30/18 21:35 101.3 08/30/18 21:00 60 08/30/18 21:00 Nasal Cannula 3.0 08/30/18 20:00 102.4 69 22 182/96 (124) 95 08/30/18 16:00 46 08/30/18 15:43 145/54 (84) Intake and Output 08/30/18 08/31/18 19:00 07:00 Intake Total 560 ml 75 ml Output Total 100 ml Balance 460 ml 75 ml Intake Oral 560 ml IV Total 75 ml Output Urine Total 100 ml # Voids 2 Laboratory Tests 08/30/18 17:15: Urine Random Sodium < 20L 08/31/18 05:20: Urine Eosinophils None seen 08/31/18 06:50: White Blood Count 7.3, Red Blood Count 3.71L, Hemoglobin 9.5L, Hematocrit 28.8L , Mean Corpuscular Volume 78L, Mean Corpuscular Hemoglobin 25.5L, Mean Corpuscular Hemoglobin Concent 32.9, Red Cell Distribution Width 12.5, Platelet Count 126L, Mean Platelet Volume 6.7, Neutrophils (%) (Auto) , Lymphocytes (%) ( Auto) , Monocytes (%) (Auto) , Eosinophils (%) (Auto) , Basophils (%) (Auto) , Differential Total Cells Counted 100, Neutrophils % (Manual) 86H, Lymphocytes % (Manual) 4L, Monocytes % (Manual) 10, Eosinophils % (Manual) 0, Basophils % ( Manual) 0, Band Neutrophils 0, Platelet Estimate DecreasedL, Platelet Morphology Normal, Microcytosis 1+, Sodium Level 138, Potassium Level 3.0L, Chloride Level 102, Carbon Dioxide Level 25, Anion Gap 11, Blood Urea Nitrogen 82H, Creatinine 4.7H, Estimat Glomerular Filtration Rate 12.7, Glucose Level 143H, Hemoglobin A1c 6.1H, Uric Acid 10.8H, Calcium Level 8.3L, Phosphorus Level 3.2, Magnesium Level 1.8, Iron Level 10L, Total Iron Binding Capacity 159L , Percent Iron Saturation 6L, Unsaturated Iron Binding 149, Ferritin 1346H, Total Bilirubin 0.5, Gamma Glutamyl Transpeptidase 6, Aspartate Amino Transf ( AST/SGOT) 16, Alanine Aminotransferase (ALT/SGPT) 18, Alkaline Phosphatase 71, Troponin I 0.042, Pro-B-Type Natriuretic Peptide 6867H, Total Protein 6.0L, Albumin 2.3L, Globulin 3.7, Albumin/Globulin Ratio 0.6L, Triglycerides Level 287H, Cholesterol Level 165, LDL Cholesterol 78, HDL Cholesterol 28L, Cholesterol/HDL Ratio 5.9H, Vitamin B12 Level 488, Folate 79.6H, Thyroid Stimulating Hormone (TSH) 3.320 Height (Feet): 5 Height (Inches): 6.00 Weight (Pounds): 180 Objective General: alert, cooperative, no distress, appears stated age Head: normocephalic, without obvious abnormality, atraumatic Eyes: conjunctivae/corneas clear. PERRL, EOM's intact Throat: lips, mucosa, and tongue normal. MMM Neck: supple, symmetrical, trachea midline, and no JVD Lungs: clear to auscultation bilaterally Heart: regular rate and rhythm, S1, S2 normal, no murmur, click, rub or gallop Abdomen: soft, non-tender, non-distended, bowel sounds normal; no masses or organomegaly Extremities: extremities normal, atraumatic, no cyanosis or edema Pulses: 2+ and symmetric Skin: skin color, texture, turgor normal; no rashes or lesions Neurologic: grossly normal, no focal deficits Gerson Clay MD Aug 31, 2018 13:29
--- NOTE | 2018-08-31 13:54 | Nephrology Progress Note ---
Assessment/Plan Problem List: (1) CKD (chronic kidney disease) stage 5, GFR less than 15 ml/min (2) Hypertensive kidney disease (3) Anemia in chronic kidney disease (CKD) Assessment Known CKD now superimposed acute renal failure 4+ Proteinuria HTN ooc DM Apparent right renal solid lesion, more questionable left renal solid lesion. Splenomegaly L1 vertebral body wedge/vertebra plana compression fracture deformity resulting in 60% height loss. bilateral superficial femoral arterial stents, Plan Hydrate Flomax Kidney RICARDO pending urine studies Avoid nephrotoxics Anemia retana fluid challenge adjust bp meds per orders Subjective ROS Limited/Unobtainable: No Constitutional: Reports: malaise, weakness Objective Objective Last 24 Hour Vital Signs Date Time Temp Pulse Resp B/P (MAP) Pulse Ox O2 Delivery O2 Flow Rate FiO2 08/31/18 12:00 68 08/31/18 12:00 97.5 83 18 130/79 (96) 100 08/31/18 09:00 Nasal Cannula 3.0 08/31/18 08:00 96.6 74 18 112/73 (86) 96 08/31/18 08:00 66 08/31/18 04:12 173/69 08/31/18 04:00 98.6 71 18 173/69 (103) 95 08/31/18 04:00 45 08/31/18 00:00 101.3 50 18 122/52 (75) 95 08/31/18 00:00 49 08/30/18 22:37 182/96 08/30/18 21:35 101.3 08/30/18 21:00 60 08/30/18 21:00 Nasal Cannula 3.0 08/30/18 20:00 102.4 69 22 182/96 (124) 95 08/30/18 16:00 46 08/30/18 15:43 145/54 (84) Intake and Output 08/30/18 08/31/18 19:00 07:00 Intake Total 560 ml 75 ml Output Total 100 ml Balance 460 ml 75 ml Intake Oral 560 ml IV Total 75 ml Output Urine Total 100 ml # Voids 2 Laboratory Tests 08/30/18 17:15: Urine Random Sodium < 20L 08/31/18 05:20: Urine Eosinophils None seen 08/31/18 06:50: White Blood Count 7.3, Red Blood Count 3.71L, Hemoglobin 9.5L, Hematocrit 28.8L , Mean Corpuscular Volume 78L, Mean Corpuscular Hemoglobin 25.5L, Mean Corpuscular Hemoglobin Concent 32.9, Red Cell Distribution Width 12.5, Platelet Count 126L, Mean Platelet Volume 6.7, Neutrophils (%) (Auto) , Lymphocytes (%) ( Auto) , Monocytes (%) (Auto) , Eosinophils (%) (Auto) , Basophils (%) (Auto) , Differential Total Cells Counted 100, Neutrophils % (Manual) 86H, Lymphocytes % (Manual) 4L, Monocytes % (Manual) 10, Eosinophils % (Manual) 0, Basophils % ( Manual) 0, Band Neutrophils 0, Platelet Estimate DecreasedL, Platelet Morphology Normal, Microcytosis 1+, Sodium Level 138, Potassium Level 3.0L, Chloride Level 102, Carbon Dioxide Level 25, Anion Gap 11, Blood Urea Nitrogen 82H, Creatinine 4.7H, Estimat Glomerular Filtration Rate 12.7, Glucose Level 143H, Hemoglobin A1c 6.1H, Uric Acid 10.8H, Calcium Level 8.3L, Phosphorus Level 3.2, Magnesium Level 1.8, Iron Level 10L, Total Iron Binding Capacity 159L , Percent Iron Saturation 6L, Unsaturated Iron Binding 149, Ferritin 1346H, Total Bilirubin 0.5, Gamma Glutamyl Transpeptidase 6, Aspartate Amino Transf ( AST/SGOT) 16, Alanine Aminotransferase (ALT/SGPT) 18, Alkaline Phosphatase 71, Troponin I 0.042, Pro-B-Type Natriuretic Peptide 6867H, Total Protein 6.0L, Albumin 2.3L, Globulin 3.7, Albumin/Globulin Ratio 0.6L, Triglycerides Level 287H, Cholesterol Level 165, LDL Cholesterol 78, HDL Cholesterol 28L, Cholesterol/HDL Ratio 5.9H, Vitamin B12 Level 488, Folate 79.6H, Thyroid Stimulating Hormone (TSH) 3.320 Height (Feet): 5 Height (Inches): 6.00 Weight (Pounds): 180 General Appearance: no apparent distress, alert Cardiovascular: normal rate Respiratory/Chest: decreased breath sounds Abdomen: distended Gilles Lebron MD Aug 31, 2018 13:54
[2018-08-31] MEDS ORDERED: HydrALAZINE 50mg tab ORAL SCH (14:00)
[2018-08-31] MEDS: HydrALAZINE 50mg tab ORAL SCH ×3 (14:14→22:04)
--- NOTE | 2018-08-31 15:56 | Infectious Diseases Prog Note ---
Assessment/Plan Assessment/Plan Full consult dictated: A) 1) possible sepsis, fevers, leukocytosis 2) hx of renal failure 3) pmh noted 4) allergies - nkda P) 1) rocephin 2) check blood cultures, labs, influenza screen ordered 3) ua and chest x-ray negative 4) thank you Subjective Allergies: Coded Allergies: No Known Allergies (Unverified , 08/29/18) Objective Vital Signs Last 24 Hour Vital Signs Date Time Temp Pulse Resp B/P (MAP) Pulse Ox O2 Delivery O2 Flow Rate FiO2 08/31/18 14:14 130/79 08/31/18 12:00 68 08/31/18 12:00 97.5 83 18 130/79 (96) 100 08/31/18 09:00 Nasal Cannula 3.0 08/31/18 08:00 96.6 74 18 112/73 (86) 96 08/31/18 08:00 66 08/31/18 04:12 173/69 08/31/18 04:00 98.6 71 18 173/69 (103) 95 08/31/18 04:00 45 08/31/18 00:00 101.3 50 18 122/52 (75) 95 08/31/18 00:00 49 08/30/18 22:37 182/96 08/30/18 21:35 101.3 08/30/18 21:00 60 08/30/18 21:00 Nasal Cannula 3.0 08/30/18 20:00 102.4 69 22 182/96 (124) 95 08/30/18 16:00 46 Height (Feet): 5 Height (Inches): 6.00 Weight (Pounds): 180 Laboratory Tests Test 08/30/18 17:15 08/31/18 05:20 08/31/18 06:50 Urine Random Sodium < 20 mmol/L (20-110) L Urine Eosinophils None seen (NONE SEEN) White Blood Count 7.3 K/UL (4.8-10.8) Red Blood Count 3.71 M/UL (4.70-6.10) L Hemoglobin 9.5 G/DL (14.2-18.0) L Hematocrit 28.8 % (42.0-52.0) L Mean Corpuscular Volume 78 FL (80-99) L Mean Corpuscular Hemoglobin 25.5 PG (27.0-31.0) L Mean Corpuscular Hemoglobin Concent 32.9 G/DL (32.0-36.0) Red Cell Distribution Width 12.5 % (11.6-14.8) Platelet Count 126 K/UL (150-450) L Mean Platelet Volume 6.7 FL (6.5-10.1) Neutrophils (%) (Auto) % (45.0-75.0) Lymphocytes (%) (Auto) % (20.0-45.0) Monocytes (%) (Auto) % (1.0-10.0) Eosinophils (%) (Auto) % (0.0-3.0) Basophils (%) (Auto) % (0.0-2.0) Differential Total Cells Counted 100 Neutrophils % (Manual) 86 % (45-75) H Lymphocytes % (Manual) 4 % (20-45) L Monocytes % (Manual) 10 % (1-10) Eosinophils % (Manual) 0 % (0-3) Basophils % (Manual) 0 % (0-2) Band Neutrophils 0 % (0-8) Platelet Estimate Decreased L Platelet Morphology Normal Microcytosis 1+ Sodium Level 138 MMOL/L (136-145) Potassium Level 3.0 MMOL/L (3.5-5.1) L Chloride Level 102 MMOL/L (98-107) Carbon Dioxide Level 25 MMOL/L (21-32) Anion Gap 11 mmol/L (5-15) Blood Urea Nitrogen 82 mg/dL (7-18) H Creatinine 4.7 MG/DL (0.55-1.30) H Estimat Glomerular Filtration Rate 12.7 mL/min (>60) Glucose Level 143 MG/DL (74-106) H Hemoglobin A1c 6.1 % (4.3-6.0) H Uric Acid 10.8 MG/DL (2.6-7.2) H Calcium Level 8.3 MG/DL (8.5-10.1) L Phosphorus Level 3.2 MG/DL (2.5-4.9) Magnesium Level 1.8 MG/DL (1.8-2.4) Iron Level 10 ug/dL (50-175) L Total Iron Binding Capacity 159 ug/dL (250-450) L Percent Iron Saturation 6 % (15-50) L Unsaturated Iron Binding 149 ug/dL (112-346) Ferritin 1346 NG/ML (8-388) H Total Bilirubin 0.5 MG/DL (0.2-1.0) Gamma Glutamyl Transpeptidase 6 U/L (5-85) Aspartate Amino Transf (AST/SGOT) 16 U/L (15-37) Alanine Aminotransferase (ALT/SGPT) 18 U/L (12-78) Alkaline Phosphatase 71 U/L (46-116) Troponin I 0.042 ng/mL (0.000-0.056) C-Reactive Protein, Quantitative 14.9 mg/dL (0.00-0.90) H Pro-B-Type Natriuretic Peptide 6867 pg/mL (0-125) H Total Protein 6.0 G/DL (6.4-8.2) L Albumin 2.3 G/DL (3.4-5.0) L Globulin 3.7 g/dL Albumin/Globulin Ratio 0.6 (1.0-2.7) L Triglycerides Level 287 MG/DL (30-150) H Cholesterol Level 165 MG/DL (< 200) LDL Cholesterol 78 mg/dL (<100) HDL Cholesterol 28 MG/DL (40-60) L Cholesterol/HDL Ratio 5.9 (3.3-4.4) H Vitamin B12 Level 488 PG/ML (193-986) Folate 79.6 NG/ML (8.6-58.9) H Thyroid Stimulating Hormone (TSH) 3.320 uiU/mL (0.358-3.740) Current Medications Medications (Trade) Dose Ordered Sig/Swathi Route PRN Reason Start Time Stop Time Status Last Admin Dose Admin Acetaminophen (Tylenol) 650 mg Q4H PRN ORAL Mild Pain (Pain Scale 1-3) 08/29/18 17:30 09/28/18 17:14 08/30/18 21:05 Allopurinol (Allopurinol) 300 mg DAILY ORAL 09/01/18 09:00 10/01/18 08:59 Amlodipine Besylate (Norvasc) 2.5 mg DAILY ORAL 09/01/18 09:00 10/01/18 08:59 Apixaban (Eliquis) 5 mg BID ORAL 08/30/18 09:00 09/29/18 08:59 08/31/18 08:53 Aspirin (Ecotrin) 81 mg DAILY ORAL 08/30/18 09:00 09/29/18 08:59 08/31/18 08:47 Dextrose (Dextrose 50%) 25 ml Q30M PRN IV Hypoglycemia 08/29/18 17:30 09/28/18 17:29 Dextrose (Dextrose 50%) 50 ml Q30M PRN IV Hypoglycemia 08/29/18 17:30 09/28/18 17:29 Dextrose/Sodium Chloride 1,000 ml @ 75 mls/hr [id number] IV 08/30/18 14:00 09/29/18 13:59 08/30/18 18:04 Docusate Sodium (Colace) 100 mg TID ORAL 08/31/18 13:00 09/28/18 20:59 08/31/18 12:12 Hydralazine HCl (Apresoline) 10 mg Q4H PRN IV SBP > 190 08/29/18 17:30 09/28/18 17:29 Hydralazine HCl (Apresoline) 50 mg Q8HR ORAL 08/31/18 14:00 09/30/18 13:59 08/31/18 14:14 Insulin Aspart (NovoLOG) BEFORE MEALS AND HS SUBQ 08/29/18 21:00 09/28/18 20:59 08/31/18 12:14 Levothyroxine Sodium (Synthroid) 100 mcg ACBREAKFAST ORAL 08/30/18 06:30 09/29/18 06:29 Lorazepam (Ativan 2mg/ml 1ml) 0.5 mg Q4H PRN IV For Anxiety 08/29/18 17:30 09/05/18 17:14 Minoxidil (Loniten) 2.5 mg Q4H PRN ORAL bp over 165 syst 08/31/18 12:00 09/30/18 11:59 Morphine Sulfate (Morphine Sulfate) 2 mg Q4H PRN IVP Severe Pain (Pain Scale 7-10) 08/29/18 21:00 09/05/18 20:59 08/30/18 18:41 Ondansetron HCl (Zofran) 4 mg Q6H PRN IVP Nausea & Vomiting 08/29/18 17:30 09/28/18 17:14 08/30/18 21:24 Pantoprazole (Protonix) 40 mg EVERY 12 HOURS ORAL 08/30/18 21:00 09/29/18 20:59 08/31/18 08:47 Tamsulosin HCl (Flomax) 0.4 mg BID ORAL 08/31/18 18:00 09/29/18 20:59 Rodrigue Teixeira MD Aug 31, 2018 15:56
[2018-08-31] MEDS: cefTRIAXone 1 GM in D5W 50 ML IVPB SCH (17:17)
[2018-08-31] MEDS: Tamsulosin 0.4mg cap ORAL SCH (17:18)
--- NOTE | 2018-08-31 19:15 | Consultation ---
DATE OF CONSULTATION: 08/31/2018 INFECTIOUS DISEASES CONSULTATION CONSULTING PHYSICIAN: Rodrigue Teixeira M.D. ATTENDING PHYSICIAN: Gerson Clay M.D. REFERRING PHYSICIAN: Gerson Clay M.D. REASON FOR CONSULTATION: Possible sepsis, fevers, and leukocytosis. CHIEF COMPLAINT: The patient's chief complaint coming in to the hospital is chest pain and coronary syndrome. HISTORY OF PRESENT ILLNESS: This is a very pleasant 63-year-old male who has a history of end-stage renal disease, currently not on dialysis, however, he has elevated creatinine. The patient has chronic kidney disease. The patient presented to [facility] with chest pain and is being worked up for that. The patient was noted to have a fever on 08/29/2018 of 101.3. The patient had UA, which was negative for leukocyte esterase and 0 white cells were noted. The patient's chest x-ray was done, which showed no acute process and a CT scan of abdomen and pelvis showed no definite acute process also. The patient has had persistent fevers and also had leukocytosis on admission. Infectious Disease consultation was requested for antibiotic management. The patient was empirically started on Rocephin for possible sepsis with history of fevers and leukocytosis, lactic acid also been ordered. MAR was noted. Notes were reviewed. REVIEW OF SYSTEMS: CONSTITUTIONAL: The patient has generalized fatigue, but no focal weakness. He has fevers. He had chills. CARDIAC: No chest pain. Now, he did have chest pain coming into the hospital. GASTROINTESTINAL: No nausea, vomiting, or diarrhea. GENITOURINARY: No dysuria or frequency. PULMONARY: No congestion, shortness of breath, hemoptysis, or secretions. SKIN: No rash. EXTREMITIES: No extremity pain. No joint pain either. NEUROLOGIC: No seizures. PAST MEDICAL HISTORY: The patient's past medical history includes history of the following. The patient has past medical history of chronic kidney disease. Per the patient, he is on a transplant list for chronic kidney disease and end-stage renal disease. He also has a history of hypertension, atrial fibrillation, history of diabetes, and chronic kidney disease. As discussed, he came in with chest pain, atrial fibrillation, hypertension, diabetes, chronic kidney disease, and end-stage renal disease. He has also has history of hypothyroidism. ALLERGIES: No known drug allergies. SOCIAL HISTORY: Negative for smoking, alcohol, or drug abuse. FAMILY HISTORY: Noncontributory. MEDICATIONS: Upon reviewing the MAR, he is on the following medications of amlodipine, Norvasc, allopurinol, Flomax, Rocephin, hydralazine, minoxidil, and pantoprazole. He is on aspirin, apixaban, levothyroxine, insulin, morphine, acetaminophen, Zofran, lorazepam, and hydralazine. Outside medications noted and reconciliated. PHYSICAL EXAMINATION: VITAL SIGNS: Currently, temperature 97.5, pulse rate 83, respiratory rate 18, blood pressure 130/79, saturation 100%, and T-max 102.4 and on 08/29/2018 101.3 and also respiratory rate as high as 22. GENERAL: The patient is alert and responsive, in no acute distress. HEAD AND NECK: Oral exam, no thrush. Eye exam, no icterus. Normocephalic. Neck is supple. HEART: Regular. No gallops or murmur. No friction rub. ABDOMEN: Soft. Positive bowel sounds. Nontender. LUNGS: Clear bilaterally. No rhonchi or rales. SKIN: No rash. PERIPHERAL VASCULAR: No cyanosis. GENITOURINARY: No Hernandez. No CVA tenderness. LINES: Line sites without phlebitis. MUSCULOSKELETAL: No evidence of effusion. No septic arthritis. NEUROLOGIC: Intact. He is oriented x3. LABORATORY AND DIAGNOSTIC DATA: Laboratory data as follows. White count 7.3 and hemoglobin 9.5. White cell count has been as high as 16.8. Creatinine is 4.7. LFTs noted. Blood cultures has been ordered. UA shows leukocyte esterase negative. Chest x-ray is negative. CT scan of abdomen and pelvis showed no acute process. ASSESSMENT AND PLAN: 1. The patient has possible sepsis, elevated white count was as high as 16.8 and T-Max 102.4. The patient does have SIRS criteria. Also had elevated respiratory rate as high as 22. The patient will be started on empiric Rocephin 1 g IV q.24 h. for possible sepsis and blood culture will be ordered. Lactic acid and labs will be ordered. Chest x-ray and UA are negative. Continue Rocephin for possible sepsis, pending cultures. 2. Chronic kidney disease and renal transplant as per patient and end-stage renal disease. 3. Hypokalemia. 4. Anemia. 5. Hypertension. 6. Diabetes. Blood sugar treatment for diabetes per primary and hypertension per primary and consultants. 7. Hypothyroidism. 8. Atrial fibrillation history. 9. Chest pain. Workup per primary and consultants. 10. No known drug allergies. 11. Social history is negative. 12. Family history is noncontributory. 13. MAR was noted. 14. Case discussed with RN. 15. Continue treatment per primary consultants. Rodrigue Teixeira M.D. DR: GETACHEW JOB#: [id number] CC:
[2018-08-31 20:00] VITALS: BP 126/58
--- NOTE | 2018-08-31 20:09 | NUR ---
NURSE NOTES: RECEIVED PATIENT RESTING IN BED, DENIES CHEST PAIN AT THIS TIME. FALL PRECAUTIONS IN PLACE: CALL LIGHT, BEDSIDE TABLE AND URINAL WITHIN REACH, BED IN LOW POSITION. DAUGHTER AT BEDSIDE. PLAN OF CARE REVIEWED.
[2018-09-01] VITALS: BP 108/67
[2018-09-01 04:00] VITALS: BP 137/91
[2018-09-01] MEDS: D5NS 1,000 ML IV SCH ×2 (05:34→19:50)
[2018-09-01] MEDS: HydrALAZINE 50mg tab ORAL SCH ×3 (06:16→21:37)
[2018-09-01] MEDS: NovoLOG Insulin Flexpen SUBQ SCH ×4 (06:17→20:49)
--- NOTE | 2018-09-01 07:22 | NUR ---
HAND-OFF: Report given to Jeffrey HEAD RN. PATIENT ASLEEP, NO SIGNS OF DISTRESS NOTED.
--- NOTE | 2018-09-01 07:31 | NUR ---
NURSE NOTES: Report received from Lolis SIMENTAL. patient a/o x 4. resting in his bed with closed eyes. no s/s of pain and SOB noted at this time. call light and frequent used objects are with in reach. rails up x 2 for safety reasons. 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 will continue to monitor.
[2018-09-01 08:15] VITALS: BP 148/84
[2018-09-01] MEDS: Eliquis 2.5mg tablet ORAL SCH ×2 (09:25→17:15)
[2018-09-01] MEDS: Tamsulosin 0.4mg cap ORAL SCH ×2 (09:25→17:13)
[2018-09-01] MEDS: Aspirin EC 81mg tab ORAL SCH (09:26)
[2018-09-01] MEDS: Docusate 100mg cap ORAL SCH ×3 (09:28→17:12)
--- NOTE | 2018-09-01 09:59 | NUR ---
CASE MANAGEMENT:REVIEW 09/01/18 SI: ACS. POSSIBLE SEPSIS. CKD 97.0 78 20 148/84 98% ON RA H/H-9.5/28.8 PLT-126 K-3.0 BUN+82 CR+4.7 IS: IV ROCEPHIN Q24 CLONIDINE PO X1 NORVASC PO QD FLOMAX PO BID IVF@75/HR ASA PO QD ELIQUIS PO BID : TELEMETRY STATUS DCP; PATIENT IS FROM HOME
--- NOTE | 2018-09-01 10:25 | Cardiology Report ---
APPROVED REPORT EXAM: Two-dimensional and M-mode echocardiogram with Doppler and color Doppler. INDICATION Coronary artery disease M-Mode DIMENSIONS IVSd1.7 (0.7-1.1cm)Left Atrium (MM)4.0 (1.6-4.0cm) LVDd3.3 (3.5-5.6cm)Aortic Root3.6 (2.0-3.7cm) PWd2.0 (0.7-1.1cm)Aortic Cusp Exc.2.0 (1.5-2.0cm) LVDs1.8 (2.5-4.0cm) PWs2.8 cm Normal left ventricular chamber size, systolic function and wall motion. Left ventricular ejection fraction estimated to be 60-65 %. Moderate left ventricular hypertrophy. No evidence of pericardial effusion. Mild left atrial enlargement by 2-D. Mild right ventricular enlargement. Right atrial chamber size is within normal limits. Focal aortic valve sclerosis with adequate cusp excursion. Thickened mitral valve leaflets with normal excursion. Mild mitral annulus and aortic root calcification. Normal pulmonic valve structure. Normal tricuspid valve structure. IVC measured at 2.1 cm with physiological collapse, suggestive of increased RA pressure. A color flow and spectral Doppler study was performed and revealed: No aortic insufficiency. Elevated pressure gradient may be due to hyperdynamic systolic function. Peak aortic valve gradient of 24 mmHg and a mean of 11 mmHg. No mitral regurgitation. Left ventricular diastolic function could not be determined due to arrhythmia. Moderate tricuspid regurgitation. Tricuspid systolic velocities suggests peak right ventricular systolic pressure of 99 mmHg, consistent with severe pulmonary hypertension. No pulmonic regurgitation present.
[2018-09-01 11:16] LABS: ANION GAP 7 mmol/L (5-15); BLOOD UREA NITROGEN 81 mg/dL (7-18); CALCIUM 8.6 MG/DL (8.5-10.1); CARBON DIOXIDE 27 MMOL/L (21-32); CHLORIDE 103 MMOL/L (98-107); CREATININE 4.4 MG/DL (0.55-1.30); POTASSIUM 3.5 MMOL/L (3.5-5.1); SODIUM 137 MMOL/L (136-145)
[2018-09-01 11:21] LABS: ALANINE AMINOTRANSFERASE 17 U/L (12-78); ALBUMIN 2.2 G/DL (3.4-5.0); ALBUMIN/GLOBULIN RATIO 0.6 (1.0-2.7); ALKALINE PHOSPHATASE 68 U/L (46-116); ASPARTATE AMINO TRANSFERASE 14 U/L (15-37); BILIRUBIN,TOTAL 0.4 MG/DL (0.2-1.0)
[2018-09-01 11:28] LABS: EOSINOPHILS % (AUTO) 1.2 % (0.0-3.0); HEMATOCRIT 28.6 % (42.0-52.0); HEMOGLOBIN 9.5 G/DL (14.2-18.0); LYMPHOCYTES % (AUTO) 8.9 % (20.0-45.0); MEAN CORPUSCULAR VOLUME 77 FL (80-99); MONOCYTES % (AUTO) 9.6 % (1.0-10.0); NEUTROPHILS % (AUTO) 79.3 % (45.0-75.0); PLATELET COUNT 161 K/UL (150-450); RED BLOOD COUNT 3.71 M/UL (4.70-6.10); RED CELL DISTRIBUTION WIDTH 12.7 % (11.6-14.8); WHITE BLOOD COUNT 5.7 K/UL (4.8-10.8)
--- NOTE | 2018-09-01 11:40 | Infectious Diseases Prog Note ---
Assessment/Plan Assessment/Plan ASSESSMENT AND PLAN: 1. possible sepsis, leukocytosis, fevers, sirs + - ceftriaxone empirically - f/u on blood cultures - fevers improved, ua negative, chest x-ray - negative, influenza negative - monitor labs, leukocytosis resolved 2. ckd - renal transplant list per patient 3. Hypokalemia. 4. Anemia. 5. Hypertension. 6. Diabetes. Blood sugar treatment for diabetes per primary and hypertension per primary and consultants. 7. Hypothyroidism. 8. Atrial fibrillation history. 9. Chest pain. Workup per primary and consultants. 10. No known drug allergies. 11. Social history is negative. 12. Family history is noncontributory. 13. MAR was noted. 14. Case discussed with RN. 15. Continue treatment per primary consultants. Subjective Constitutional: Denies: fever HEENT: Denies: congestion Respiratory: Denies: shortness of breath Cardiovascular: Denies: chest pain Gastrointestinal/Abdominal: Denies: nausea, vomiting, diarrhea Genitourinary: Denies: dysuria, hematuria Neurologic: Denies: headache Psychiatric: Denies: depression Skin: Denies: rash Hematologic: Denies: bleeding Musculoskeletal: Denies: pain Allergies: Coded Allergies: No Known Allergies (Unverified , 08/29/18) Objective Vital Signs Last 24 Hour Vital Signs Date Time Temp Pulse Resp B/P (MAP) Pulse Ox O2 Delivery O2 Flow Rate FiO2 09/01/18 09:53 148/84 09/01/18 09:27 78 148/84 09/01/18 09:00 Nasal Cannula 2.0 09/01/18 08:15 97.0 78 20 148/84 (105) 98 09/01/18 08:10 63 09/01/18 06:16 137/91 09/01/18 04:00 63 09/01/18 04:00 97.1 67 20 137/91 (106) 98 09/01/18 00:00 99.0 96 18 108/67 (81) 93 09/01/18 00:00 69 08/31/18 22:00 128/57 08/31/18 21:00 Nasal Cannula 2.0 08/31/18 20:00 100.8 65 20 126/58 (80) 92 08/31/18 20:00 57 08/31/18 17:52 99.1 08/31/18 16:00 63 08/31/18 16:00 63 08/31/18 14:14 130/79 08/31/18 12:00 68 08/31/18 12:00 97.5 83 18 130/79 (96) 100 Height (Feet): 5 Height (Inches): 6.00 Weight (Pounds): 180 General Appearance: no acute distress HEENT: normocephalic, atraumatic, anicteric, mucous membranes moist Respiratory/Chest: lungs clear, normal breath sounds, no respiratory distress, no accessory muscle use Cardiovascular: normal rate, regular rhythm, no gallop/murmur, no JVD Abdomen: normal bowel sounds, soft, non tender, no organomegaly, non distended Genitourinary: other - no rivas, no cva pain Extremities: no cyanosis Skin: no rash 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 Heart size is upper limits of normal Impression: No acute process Microbiology Date/Time Source Procedure Growth Status 09/01/18 01:15 Nasal Nares Influenza Types A,B Antigen (AWILDA) - Final Complete Laboratory Tests Test 08/31/18 16:30 09/01/18 01:00 09/01/18 10:50 Lactic Acid Level 0.70 mmol/L (0.4-2.0) Urine Eosinophils None seen (NONE SEEN) White Blood Count 5.7 K/UL (4.8-10.8) Red Blood Count 3.71 M/UL (4.70-6.10) L Hemoglobin 9.5 G/DL (14.2-18.0) L Hematocrit 28.6 % (42.0-52.0) L Mean Corpuscular Volume 77 FL (80-99) L Mean Corpuscular Hemoglobin 25.7 PG (27.0-31.0) L Mean Corpuscular Hemoglobin Concent 33.3 G/DL (32.0-36.0) Red Cell Distribution Width 12.7 % (11.6-14.8) Platelet Count 161 K/UL (150-450) Mean Platelet Volume 7.4 FL (6.5-10.1) Neutrophils (%) (Auto) 79.3 % (45.0-75.0) H Lymphocytes (%) (Auto) 8.9 % (20.0-45.0) L Monocytes (%) (Auto) 9.6 % (1.0-10.0) Eosinophils (%) (Auto) 1.2 % (0.0-3.0) Basophils (%) (Auto) 1.0 % (0.0-2.0) Sodium Level 137 MMOL/L (136-145) Potassium Level 3.5 MMOL/L (3.5-5.1) Chloride Level 103 MMOL/L (98-107) Carbon Dioxide Level 27 MMOL/L (21-32) Anion Gap 7 mmol/L (5-15) Blood Urea Nitrogen 81 mg/dL (7-18) H Creatinine 4.4 MG/DL (0.55-1.30) H Estimat Glomerular Filtration Rate 13.7 mL/min (>60) Glucose Level 170 MG/DL (74-106) H Uric Acid Pending Calcium Level 8.6 MG/DL (8.5-10.1) Phosphorus Level Pending Magnesium Level Pending Total Bilirubin 0.4 MG/DL (0.2-1.0) Gamma Glutamyl Transpeptidase Pending Aspartate Amino Transf (AST/SGOT) 14 U/L (15-37) L Alanine Aminotransferase (ALT/SGPT) 17 U/L (12-78) Alkaline Phosphatase 68 U/L (46-116) Pro-B-Type Natriuretic Peptide Pending Total Protein 6.1 G/DL (6.4-8.2) L Albumin 2.2 G/DL (3.4-5.0) L Globulin 3.9 g/dL Albumin/Globulin Ratio 0.6 (1.0-2.7) L Prostate Specific Antigen Pending Current Medications Medications (Trade) Dose Ordered Sig/Swathi Route PRN Reason Start Time Stop Time Status Last Admin Dose Admin Acetaminophen (Tylenol) 650 mg Q4H PRN ORAL Mild Pain (Pain Scale 1-3) 08/29/18 17:30 09/28/18 17:14 08/31/18 22:08 Allopurinol (Allopurinol) 300 mg DAILY ORAL 09/01/18 09:00 10/01/18 08:59 09/01/18 09:28 Amlodipine Besylate (Norvasc) 2.5 mg DAILY ORAL 09/01/18 09:00 10/01/18 08:59 09/01/18 09:27 Apixaban (Eliquis) 5 mg BID ORAL 08/30/18 09:00 09/29/18 08:59 09/01/18 09:25 Aspirin (Ecotrin) 81 mg DAILY ORAL 08/30/18 09:00 09/29/18 08:59 09/01/18 09:26 Ceftriaxone Sodium 1 gm/ Dextrose 50 ml @ 100 mls/hr Q24H IVPB 08/31/18 17:00 09/07/18 16:59 08/31/18 17:17 Dextrose (Dextrose 50%) 25 ml Q30M PRN IV Hypoglycemia 08/29/18 17:30 09/28/18 17:29 Dextrose (Dextrose 50%) 50 ml Q30M PRN IV Hypoglycemia 08/29/18 17:30 09/28/18 17:29 Dextrose/Sodium Chloride 1,000 ml @ 75 mls/hr [id number] IV 08/30/18 14:00 09/29/18 13:59 08/30/18 18:04 Docusate Sodium (Colace) 100 mg TID ORAL 08/31/18 13:00 09/28/18 20:59 09/01/18 09:28 Hydralazine HCl (Apresoline) 10 mg Q4H PRN IV SBP > 190 08/29/18 17:30 09/28/18 17:29 Hydralazine HCl (Apresoline) 50 mg Q8HR ORAL 08/31/18 14:00 09/30/18 13:59 09/01/18 06:16 Insulin Aspart (NovoLOG) BEFORE MEALS AND HS SUBQ 08/29/18 21:00 09/28/18 20:59 09/01/18 06:17 Levothyroxine Sodium (Synthroid) 100 mcg ACBREAKFAST ORAL 08/30/18 06:30 09/29/18 06:29 Lorazepam (Ativan 2mg/ml 1ml) 0.5 mg Q4H PRN IV For Anxiety 08/29/18 17:30 09/05/18 17:14 Minoxidil (Loniten) 2.5 mg Q4H PRN ORAL bp over 165 syst 08/31/18 12:00 09/30/18 11:59 Morphine Sulfate (Morphine Sulfate) 2 mg Q4H PRN IVP Severe Pain (Pain Scale 7-10) 08/29/18 21:00 09/05/18 20:59 08/30/18 18:41 Ondansetron HCl (Zofran) 4 mg Q6H PRN IVP Nausea & Vomiting 08/29/18 17:30 09/28/18 17:14 08/30/18 21:24 Pantoprazole (Protonix) 40 mg EVERY 12 HOURS ORAL 08/30/18 21:00 09/29/18 20:59 08/31/18 22:02 Potassium Chloride (K-Dur) 40 meq ONCE ORAL 09/01/18 10:15 09/01/18 12:00 09/01/18 10:49 Tamsulosin HCl (Flomax) 0.4 mg BID ORAL 08/31/18 18:00 09/29/18 20:59 09/01/18 09:25 Rodrigue Teixeira MD Sep 01, 2018 11:40
[2018-09-01 12:00] VITALS: BP 153/76
--- NOTE | 2018-09-01 14:06 | Nephrology Progress Note ---
Assessment/Plan Problem List: (1) CKD (chronic kidney disease) stage 5, GFR less than 15 ml/min (2) Hypertensive kidney disease (3) Anemia in chronic kidney disease (CKD) Assessment Known CKD now superimposed acute renal failure cr down to 4.4 4+ Proteinuria HTN ooc DM Apparent right renal solid lesion, more questionable left renal solid lesion. Splenomegaly L1 vertebral body wedge/vertebra plana compression fracture deformity resulting in 60% height loss. bilateral superficial femoral arterial stents, Plan Hydrate Flomax Kidney RICARDO pending urine studies Avoid nephrotoxics Anemia retana fluid challenge adjust bp meds per orders Subjective ROS Limited/Unobtainable: No Constitutional: Reports: malaise Objective Objective Last 24 Hour Vital Signs Date Time Temp Pulse Resp B/P (MAP) Pulse Ox O2 Delivery O2 Flow Rate FiO2 09/01/18 12:00 96.6 79 20 153/76 (101) 98 09/01/18 09:53 148/84 09/01/18 09:27 78 148/84 09/01/18 09:00 Nasal Cannula 2.0 09/01/18 08:15 97.0 78 20 148/84 (105) 98 09/01/18 08:10 63 09/01/18 06:16 137/91 09/01/18 04:00 63 09/01/18 04:00 97.1 67 20 137/91 (106) 98 09/01/18 00:00 99.0 96 18 108/67 (81) 93 09/01/18 00:00 69 08/31/18 22:00 128/57 08/31/18 21:00 Nasal Cannula 2.0 08/31/18 20:00 100.8 65 20 126/58 (80) 92 08/31/18 20:00 57 08/31/18 17:52 99.1 08/31/18 16:00 63 08/31/18 16:00 63 08/31/18 14:14 130/79 Intake and Output 08/31/18 09/01/18 18:59 06:59 Intake Total 720 ml 570 ml Balance 720 ml 570 ml Intake Oral 720 ml 120 ml IV Total 450 ml # Voids 5 1 Laboratory Tests 08/31/18 16:30: Lactic Acid Level 0.70 09/01/18 01:00: Urine Eosinophils None seen 09/01/18 10:50: White Blood Count 5.7, Red Blood Count 3.71L, Hemoglobin 9.5L, Hematocrit 28.6L , Mean Corpuscular Volume 77L, Mean Corpuscular Hemoglobin 25.7L, Mean Corpuscular Hemoglobin Concent 33.3, Red Cell Distribution Width 12.7, Platelet Count 161, Mean Platelet Volume 7.4, Neutrophils (%) (Auto) 79.3H, Lymphocytes ( %) (Auto) 8.9L, Monocytes (%) (Auto) 9.6, Eosinophils (%) (Auto) 1.2, Basophils (%) (Auto) 1.0, Sodium Level 137, Potassium Level 3.5, Chloride Level 103, Carbon Dioxide Level 27, Anion Gap 7, Blood Urea Nitrogen 81H, Creatinine 4.4H, Estimat Glomerular Filtration Rate 13.7, Glucose Level 170H, Uric Acid 10.5H, Calcium Level 8.6, Phosphorus Level 3.0, Magnesium Level 2.1, Total Bilirubin 0.4, Gamma Glutamyl Transpeptidase 7, Aspartate Amino Transf (AST/SGOT) 14L, Alanine Aminotransferase (ALT/SGPT) 17, Alkaline Phosphatase 68, Pro-B-Type Natriuretic Peptide 48706H, Total Protein 6.1L, Albumin 2.2L, Globulin 3.9, Albumin/Globulin Ratio 0.6L, Prostate Specific Antigen 1.08 Height (Feet): 5 Height (Inches): 6.00 Weight (Pounds): 180 General Appearance: no apparent distress Cardiovascular: normal rate Respiratory/Chest: decreased breath sounds Abdomen: soft Gilles Lebron MD Sep 01, 2018 14:05
--- NOTE | 2018-09-01 15:33 | Cardiac Electrophysiology PN ---
Assessment/Plan Assessment/Plan 1. History of atrial flutter. The patient was in atrial flutter on admission. The patient is on apixaban 5 mg b.i.d. Off Sotalol for bradycardia Dropped to 40s after converted to SR at rate 40. May need PPM implant 2. Hypertension, Benazepril was discontinued in view of renal failure On Norvasc 2.5 bid and Hydralazine 50 q 8hr 3. Bradycardia, heart rate of 50s off Sotalol now 4. Renal failure. Cr>[address] Lebron. 5. Diabetes. Continue tele DW Dr Lebron Subjective Subjective No CP or SOB. at bedside. Objective Last 24 Hour Vital Signs Date Time Temp Pulse Resp B/P (MAP) Pulse Ox O2 Delivery O2 Flow Rate FiO2 09/01/18 12:00 96.6 79 20 153/76 (101) 98 09/01/18 09:53 148/84 09/01/18 09:27 78 148/84 09/01/18 09:00 Nasal Cannula 2.0 09/01/18 08:15 97.0 78 20 148/84 (105) 98 09/01/18 08:10 63 09/01/18 06:16 137/91 09/01/18 04:00 63 09/01/18 04:00 97.1 67 20 137/91 (106) 98 09/01/18 00:00 99.0 96 18 108/67 (81) 93 09/01/18 00:00 69 08/31/18 22:00 128/57 08/31/18 21:00 Nasal Cannula 2.0 08/31/18 20:00 100.8 65 20 126/58 (80) 92 08/31/18 20:00 57 08/31/18 17:52 99.1 08/31/18 16:00 63 08/31/18 16:00 63 Intake and Output 08/31/18 09/01/18 18:59 06:59 Intake Total 720 ml 570 ml Balance 720 ml 570 ml Intake Oral 720 ml 120 ml IV Total 450 ml # Voids 5 1 Laboratory Tests Test 08/31/18 16:30 09/01/18 01:00 09/01/18 10:50 Lactic Acid Level 0.70 mmol/L (0.4-2.0) Urine Eosinophils None seen (NONE SEEN) White Blood Count 5.7 K/UL (4.8-10.8) Red Blood Count 3.71 M/UL (4.70-6.10) L Hemoglobin 9.5 G/DL (14.2-18.0) L Hematocrit 28.6 % (42.0-52.0) L Mean Corpuscular Volume 77 FL (80-99) L Mean Corpuscular Hemoglobin 25.7 PG (27.0-31.0) L Mean Corpuscular Hemoglobin Concent 33.3 G/DL (32.0-36.0) Red Cell Distribution Width 12.7 % (11.6-14.8) Platelet Count 161 K/UL (150-450) Mean Platelet Volume 7.4 FL (6.5-10.1) Neutrophils (%) (Auto) 79.3 % (45.0-75.0) H Lymphocytes (%) (Auto) 8.9 % (20.0-45.0) L Monocytes (%) (Auto) 9.6 % (1.0-10.0) Eosinophils (%) (Auto) 1.2 % (0.0-3.0) Basophils (%) (Auto) 1.0 % (0.0-2.0) Sodium Level 137 MMOL/L (136-145) Potassium Level 3.5 MMOL/L (3.5-5.1) Chloride Level 103 MMOL/L (98-107) Carbon Dioxide Level 27 MMOL/L (21-32) Anion Gap 7 mmol/L (5-15) Blood Urea Nitrogen 81 mg/dL (7-18) H Creatinine 4.4 MG/DL (0.55-1.30) H Estimat Glomerular Filtration Rate 13.7 mL/min (>60) Glucose Level 170 MG/DL (74-106) H Uric Acid 10.5 MG/DL (2.6-7.2) H Calcium Level 8.6 MG/DL (8.5-10.1) Phosphorus Level 3.0 MG/DL (2.5-4.9) Magnesium Level 2.1 MG/DL (1.8-2.4) Total Bilirubin 0.4 MG/DL (0.2-1.0) Gamma Glutamyl Transpeptidase 7 U/L (5-85) Aspartate Amino Transf (AST/SGOT) 14 U/L (15-37) L Alanine Aminotransferase (ALT/SGPT) 17 U/L (12-78) Alkaline Phosphatase 68 U/L (46-116) Pro-B-Type Natriuretic Peptide 16080 pg/mL (0-125) H Total Protein 6.1 G/DL (6.4-8.2) L Albumin 2.2 G/DL (3.4-5.0) L Globulin 3.9 g/dL Albumin/Globulin Ratio 0.6 (1.0-2.7) L Prostate Specific Antigen 1.08 ng/mL (0.13-4.0) Microbiology Date/Time Source Procedure Growth Status 09/01/18 01:15 Nasal Nares Influenza Types A,B Antigen (AWILDA) - Final Complete Objective HEAD AND NECK: Showed no JVD. LUNGS: Clear. CARDIOVASCULAR: Shows regular S1 and S2 with no gallop or murmur. ABDOMEN: Soft. EXTREMITIES: No pitting edema. Isidoro Magallanes MD Sep 01, 2018 15:33
[2018-09-01 15:50] VITALS: BP 153/79
--- NOTE | 2018-09-01 16:04 | NUR ---
NURSE NOTES: EKG done as ordered by DR. Magallanes. med Surg order canceled by Dr. Magallanes will continue to monitor.
[2018-09-01] MEDS: cefTRIAXone 1 GM in D5W 50 ML IVPB SCH (17:09)
--- NOTE | 2018-09-01 17:55 | NUR ---
INSURANCE ALL CLINICAL REVIEWS FAXED TO [facility]: TER P- [phone] F- [phone].....REVIEW/CLINICAL
[2018-09-01] MEDS: Morphine Sulfate 2mg/ml Inj(IV/IM USE ONLY) IVP PRN (19:46)
--- NOTE | 2018-09-01 19:50 | General Progress Note ---
Assessment/Plan Assessment/Plan #Chest pain without acutely ischemic EKG and negative initial trop #history of Atrial fibrillation on Eliquis #history of HTN #Bradycardia -Cont telemetry -serial cardiac enzymes -EKG -sotalol discontinued per cardiology -hold ACEI/ARB/Lasix and monitor renal function, unclear if he has WHIT -Appreciate cardiology consult -may need PPM #Leukocytosis #SIRS -Unclear source of SIRS, -no definite infectious process identified at this time -trend temp curve -ID consult appreciated -cont abx per ID #Hypokalemia -repleted -CTM #Headache -treat symptomatically -CT head negative #CKD, unknown baseline creatinine #Hypokalemia #BPH -hold nephrotoxic meds -Nephrology consult appreciated #Type 2 DM -lispro sliding scale for now VTE PPx Eliquis Full Code Subjective Date patient seen: Sep 01, 2018 Allergies: Coded Allergies: No Known Allergies (Unverified , 08/29/18) Subjective No acute overnight events, norvasc d/c due to hx of lower extremity edema, pt states he was on clonidine patch at home for HTN management, clonidine restarted , pt has no complaints Objective Last 24 Hour Vital Signs Date Time Temp Pulse Resp B/P (MAP) Pulse Ox O2 Delivery O2 Flow Rate FiO2 09/01/18 17:15 70 153/79 09/01/18 15:50 97.9 70 20 153/79 (103) 97 09/01/18 12:00 96.6 79 20 153/76 (101) 98 09/01/18 09:53 148/84 09/01/18 09:27 78 148/84 09/01/18 09:00 Nasal Cannula 2.0 09/01/18 08:15 97.0 78 20 148/84 (105) 98 09/01/18 08:10 63 09/01/18 06:16 137/91 09/01/18 04:00 63 09/01/18 04:00 97.1 67 20 137/91 (106) 98 09/01/18 00:00 99.0 96 18 108/67 (81) 93 09/01/18 00:00 69 08/31/18 22:00 128/57 08/31/18 21:00 Nasal Cannula 2.0 08/31/18 20:00 100.8 65 20 126/58 (80) 92 08/31/18 20:00 57 Intake and Output 08/31/18 09/01/18 19:00 07:00 Intake Total 795 ml 495 ml Balance 795 ml 495 ml Intake Oral 720 ml 120 ml IV Total 75 ml 375 ml # Voids 5 1 Laboratory Tests 09/01/18 01:00: Urine Eosinophils None seen 09/01/18 10:50: White Blood Count 5.7, Red Blood Count 3.71L, Hemoglobin 9.5L, Hematocrit 28.6L , Mean Corpuscular Volume 77L, Mean Corpuscular Hemoglobin 25.7L, Mean Corpuscular Hemoglobin Concent 33.3, Red Cell Distribution Width 12.7, Platelet Count 161, Mean Platelet Volume 7.4, Neutrophils (%) (Auto) 79.3H, Lymphocytes ( %) (Auto) 8.9L, Monocytes (%) (Auto) 9.6, Eosinophils (%) (Auto) 1.2, Basophils (%) (Auto) 1.0, Sodium Level 137, Potassium Level 3.5, Chloride Level 103, Carbon Dioxide Level 27, Anion Gap 7, Blood Urea Nitrogen 81H, Creatinine 4.4H, Estimat Glomerular Filtration Rate 13.7, Glucose Level 170H, Uric Acid 10.5H, Calcium Level 8.6, Phosphorus Level 3.0, Magnesium Level 2.1, Total Bilirubin 0.4, Gamma Glutamyl Transpeptidase 7, Aspartate Amino Transf (AST/SGOT) 14L, Alanine Aminotransferase (ALT/SGPT) 17, Alkaline Phosphatase 68, Pro-B-Type Natriuretic Peptide [id number], Total Protein 6.1L, Albumin 2.2L, Globulin 3.9, Albumin/Globulin Ratio 0.6L, Prostate Specific Antigen 1.08 Height (Feet): 5 Height (Inches): 6.00 Weight (Pounds): 180 Objective General: alert, cooperative, no distress, appears stated age Head: normocephalic, without obvious abnormality, atraumatic Eyes: conjunctivae/corneas clear. PERRL, EOM's intact Throat: lips, mucosa, and tongue normal. MMM Neck: supple, symmetrical, trachea midline, and no JVD Lungs: clear to auscultation bilaterally Heart: regular rate and rhythm, S1, S2 normal, no murmur, click, rub or gallop Abdomen: soft, non-tender, non-distended, bowel sounds normal; no masses or organomegaly Extremities: extremities normal, atraumatic, no cyanosis or edema Pulses: 2+ and symmetric Skin: skin color, texture, turgor normal; no rashes or lesions Neurologic: grossly normal, no focal deficits Angela James MD Sep 01, 2018 19:50
--- NOTE | 2018-09-01 19:53 | NUR ---
HAND-OFF: Report given to Yvonne SIMENTAL.
--- NOTE | 2018-09-01 19:54 | NUR ---
NURSE NOTES: Received report from KAMILLE Cruz. Patient awake, alert and verbally responsive. No SOB, no acute distress, complaining of pain 7/10 on her chest wall and upper back, pain medication will be administered. IV site on R FA #22, patent and intact connected to D5 1/2 NS at 75 ml/hr. SR with 1st HB at the radiographer cardiac catheterization. Bed at lowest position, call light within reach. Will continue plan of care.
[2018-09-01 20:00] VITALS: BP 179/106
[2018-09-01] MEDS: Minoxidil 2.5mg tab ORAL PRN (20:26)
[2018-09-02] VITALS: BP 160/97
--- NOTE | 2018-09-02 02:28 | NUR ---
NURSE NOTES: Patient asleep, breathing even and unlabored, no s/sx of pain nor any discomfort at this time. Bed at lowest position, call light within reach. Will continue to monitor.
[2018-09-02 04:00] VITALS: BP 150/80
[2018-09-02] MEDS: HydrALAZINE 50mg tab ORAL SCH (05:38)
[2018-09-02] MEDS: NovoLOG Insulin Flexpen SUBQ SCH ×4 (06:21→20:39)
--- NOTE | 2018-09-02 07:02 | NUR ---
CASE MANAGEMENT:REVIEW SI: AC/CHR RENAL FAILURE. BRADYCARDIA POSSIBLE SEPSIS 98.2 HR~43 THEN 76 RR 18 BP 150/80 97% ON 2L/NC LABS CURRENTLY PENDING IS: CLONIDINE PO Q6HRS ALLOPURINOL PO QD FLOMAX PO BID IV ROCEPHIN Q24 HYDRALAZINE PO Q8HRS IVF@74/HR ASA PO QD ELIQUIS PO BID SYNTHROID PO QAM : TELEMETRY STATUS DCP: FROM HOME
[2018-09-02 07:19] LABS: ALANINE AMINOTRANSFERASE 19 U/L (12-78); ALBUMIN 2.2 G/DL (3.4-5.0); ALBUMIN/GLOBULIN RATIO 0.6 (1.0-2.7); ALKALINE PHOSPHATASE 65 U/L (46-116); ANION GAP 8 mmol/L (5-15); ASPARTATE AMINO TRANSFERASE 14 U/L (15-37); BILIRUBIN,TOTAL 0.3 MG/DL (0.2-1.0); BLOOD UREA NITROGEN 69 mg/dL (7-18); CALCIUM 8.5 MG/DL (8.5-10.1); CARBON DIOXIDE 27 MMOL/L (21-32); CHLORIDE 106 MMOL/L (98-107); CREATININE 3.8 MG/DL (0.55-1.30); PHOSPHORUS 3.1 MG/DL (2.5-4.9); SODIUM 141 MMOL/L (136-145)
--- NOTE | 2018-09-02 07:28 | NUR ---
HAND-OFF: Report given to KAMILLE Lyle. Endorsed plan of care.
[2018-09-02 08:00] VITALS: BP 161/68
[2018-09-02] MEDS: D5NS 1,000 ML IV SCH ×2 (08:59→21:56)
[2018-09-02] MEDS: Tamsulosin 0.4mg cap ORAL SCH ×2 (09:01→17:31)
[2018-09-02] MEDS: Aspirin EC 81mg tab ORAL SCH (09:01)
[2018-09-02] MEDS: Eliquis 2.5mg tablet ORAL SCH ×2 (09:01→17:30)
[2018-09-02] MEDS: Docusate 100mg cap ORAL SCH ×3 (09:01→17:29)
[2018-09-02] MEDS: LORazepam Inj 2mg/ml 1ml IV PRN (09:11)
[2018-09-02 12:00] VITALS: BP 156/77
[2018-09-02] MEDS ORDERED: cloNIDine 0.2mg Tab ORAL SCH (12:00)
--- NOTE | 2018-09-02 13:22 | Nephrology Progress Note ---
Assessment/Plan Problem List: (1) CKD (chronic kidney disease) stage 5, GFR less than 15 ml/min Assessment: CR LOWERING (2) Hypertensive kidney disease (3) Anemia in chronic kidney disease (CKD) Assessment Known CKD now superimposed acute renal failure cr down to 4.4 4+ Proteinuria HTN ooc DM Apparent right renal solid lesion, more questionable left renal solid lesion. Splenomegaly L1 vertebral body wedge/vertebra plana compression fracture deformity resulting in 60% height loss. bilateral superficial femoral arterial stents, Plan STOP CLONIDIN PATIENT HAS PERIODIC BRADYCARDIA Hydrate Flomax Kidney RICARDO pending urine studies Avoid nephrotoxics Anemia retana fluid challenge adjust bp meds per orders Objective Objective Last 24 Hour Vital Signs Date Time Temp Pulse Resp B/P (MAP) Pulse Ox O2 Delivery O2 Flow Rate FiO2 09/02/18 12:25 161/68 09/02/18 09:00 Nasal Cannula 2.0 09/02/18 08:00 97.1 75 18 161/68 (99) 97 09/02/18 08:00 72 09/02/18 05:38 173/77 09/02/18 05:38 173/77 09/02/18 04:00 98.2 76 18 150/80 (103) 97 09/02/18 04:00 43 09/02/18 00:00 97.7 74 18 160/97 (118) 99 09/02/18 00:00 66 09/01/18 23:34 160/97 09/01/18 21:37 191/89 09/01/18 21:00 Nasal Cannula 2.0 09/01/18 20:26 194/109 09/01/18 20:00 78 09/01/18 20:00 98.3 78 18 179/106 (130) 97 09/01/18 17:15 70 153/79 09/01/18 16:00 62 09/01/18 15:50 97.9 70 20 153/79 (103) 97 Intake and Output 09/01/18 09/02/18 18:59 06:59 Intake Total 1375 ml 1003 ml Balance 1375 ml 1003 ml Intake Oral 850 ml 240 ml IV Total 525 ml 763 ml # Voids 4 4 Laboratory Tests 09/02/18 06:00: Sodium Level 141, Potassium Level 3.0L, Chloride Level 106, Carbon Dioxide Level 27, Anion Gap 8, Blood Urea Nitrogen 69H, Creatinine 3.8H, Estimat Glomerular Filtration Rate 16.2, Glucose Level 151H, Calcium Level 8.5, Phosphorus Level 3.1, Total Bilirubin 0.3, Aspartate Amino Transf (AST/SGOT) 14L , Alanine Aminotransferase (ALT/SGPT) 19, Alkaline Phosphatase 65, Total Protein 6.1L, Albumin 2.2L, Globulin 3.9, Albumin/Globulin Ratio 0.6L Height (Feet): 5 Height (Inches): 6.00 Weight (Pounds): 180 Gilles Lebron MD Sep 02, 2018 13:22
--- NOTE | 2018-09-02 13:26 | Cardiology Report ---
APPROVED REPORT EKG Measurement Heart [id number] Atrial flutter with 4:1 AV conduction Left anterior fascicular block Nonspecific ST abnormality Prolonged QT Abnormal ECG
[2018-09-02] MEDS: HydrALAZINE 25mg tab ORAL SCH ×2 (13:52→21:57)
[2018-09-02 16:00] VITALS: BP 162/102
--- NOTE | 2018-09-02 16:50 | General Progress Note ---
Assessment/Plan Assessment/Plan #Chest pain without acutely ischemic EKG and negative initial trop #history of Atrial fibrillation on Eliquis #history of HTN #Bradycardia -Cont telemetry -serial cardiac enzymes - unremarkable -EKG -sotalol discontinued per cardiology -hold ACEI/ARB/Lasix and monitor renal function, unclear if he has WHIT -Appreciate cardiology consult -may need PPM #Leukocytosis #SIRS -Unclear source of SIRS, -no definite infectious process identified at this time -trend temp curve -ID consult appreciated -cont abx per ID #Hypokalemia -repleted -CTM #Headache -treat symptomatically -CT head negative #CKD, unknown baseline creatinine #Hypokalemia #BPH -hold nephrotoxic meds -Nephrology consult appreciated #Hypertension -Clonidine discontinued due to episodes of bradycardia -BP meds adjusted per nephrology #Type 2 DM -lispro sliding scale for now VTE PPx Eliquis Full Code Subjective Allergies: Coded Allergies: No Known Allergies (Unverified , 08/29/18) Subjective No acute overnight events, norvasc d/c due to hx of lower extremity edema, clonidine stopped due to periodic bradycardia, pt has no complaints Objective Last 24 Hour Vital Signs Date Time Temp Pulse Resp B/P (MAP) Pulse Ox O2 Delivery O2 Flow Rate FiO2 09/02/18 16:00 97.9 74 18 162/102 (122) 97 09/02/18 13:56 77 156/77 09/02/18 13:52 156/77 09/02/18 13:25 97.1 09/02/18 12:25 161/68 09/02/18 12:00 97.1 77 18 156/77 (103) 97 09/02/18 12:00 82 09/02/18 09:00 Nasal Cannula 2.0 09/02/18 08:00 97.1 75 18 161/68 (99) 97 09/02/18 08:00 72 09/02/18 05:38 173/77 09/02/18 05:38 173/77 09/02/18 04:00 98.2 76 18 150/80 (103) 97 09/02/18 04:00 43 09/02/18 00:00 97.7 74 18 160/97 (118) 99 09/02/18 00:00 66 09/01/18 23:34 160/97 09/01/18 21:37 191/89 09/01/18 21:00 Nasal Cannula 2.0 09/01/18 20:26 194/109 09/01/18 20:00 78 09/01/18 20:00 98.3 78 18 179/106 (130) 97 09/01/18 17:15 70 153/79 Intake and Output 09/01/18 09/02/18 18:59 06:59 Intake Total 1375 ml 1003 ml Balance 1375 ml 1003 ml Intake Oral 850 ml 240 ml IV Total 525 ml 763 ml # Voids 4 4 Laboratory Tests 09/02/18 06:00: Sodium Level 141, Potassium Level 3.0L, Chloride Level 106, Carbon Dioxide Level 27, Anion Gap 8, Blood Urea Nitrogen 69H, Creatinine 3.8H, Estimat Glomerular Filtration Rate 16.2, Glucose Level 151H, Calcium Level 8.5, Phosphorus Level 3.1, Total Bilirubin 0.3, Aspartate Amino Transf (AST/SGOT) 14L , Alanine Aminotransferase (ALT/SGPT) 19, Alkaline Phosphatase 65, Total Protein 6.1L, Albumin 2.2L, Globulin 3.9, Albumin/Globulin Ratio 0.6L Height (Feet): 5 Height (Inches): 6.00 Weight (Pounds): 180 Objective General: alert, cooperative, no distress, appears stated age Head: normocephalic, without obvious abnormality, atraumatic Eyes: conjunctivae/corneas clear. PERRL, EOM's intact Throat: lips, mucosa, and tongue normal. MMM Neck: supple, symmetrical, trachea midline, and no JVD Lungs: clear to auscultation bilaterally Heart: regular rate and rhythm, S1, S2 normal, no murmur, click, rub or gallop Abdomen: soft, non-tender, non-distended, bowel sounds normal; no masses or organomegaly Extremities: extremities normal, atraumatic, no cyanosis or edema Pulses: 2+ and symmetric Skin: skin color, texture, turgor normal; no rashes or lesions Neurologic: grossly normal, no focal deficits Angela James MD Sep 02, 2018 16:50
--- NOTE | 2018-09-02 16:52 | Cardiac Electrophysiology PN ---
Assessment/Plan Assessment/Plan 1. History of atrial flutter. The patient was in atrial flutter on admission. The patient is on apixaban 5 mg b.i.d. Off Sotalol for bradycardia Dropped to 40s after converted to SR at rate 40. May need PPM implant 2. Hypertension. Off Benazepril for renal failure On Procardia XL 30 bid and Hydralazine 75 q 8hr 3. Bradycardia, heart rate of 50s off Sotalol now 4. Renal failure. Cr 3.8 now Further evaluation by Dr. Lebron. 5. Diabetes. Continue tele Subjective Subjective No CP or SOB.Feels weak. BP running high. at bedside. Objective Last 24 Hour Vital Signs Date Time Temp Pulse Resp B/P (MAP) Pulse Ox O2 Delivery O2 Flow Rate FiO2 09/02/18 16:00 97.9 74 18 162/102 (122) 97 09/02/18 13:56 77 156/77 09/02/18 13:52 156/77 09/02/18 13:25 97.1 09/02/18 12:25 161/68 09/02/18 12:00 97.1 77 18 156/77 (103) 97 09/02/18 12:00 82 09/02/18 09:00 Nasal Cannula 2.0 09/02/18 08:00 97.1 75 18 161/68 (99) 97 09/02/18 08:00 72 09/02/18 05:38 173/77 09/02/18 05:38 173/77 09/02/18 04:00 98.2 76 18 150/80 (103) 97 09/02/18 04:00 43 09/02/18 00:00 97.7 74 18 160/97 (118) 99 09/02/18 00:00 66 09/01/18 23:34 160/97 09/01/18 21:37 191/89 09/01/18 21:00 Nasal Cannula 2.0 09/01/18 20:26 194/109 09/01/18 20:00 78 09/01/18 20:00 98.3 78 18 179/106 (130) 97 09/01/18 17:15 70 153/79 Intake and Output 09/01/18 09/02/18 18:59 06:59 Intake Total 1375 ml 1003 ml Balance 1375 ml 1003 ml Intake Oral 850 ml 240 ml IV Total 525 ml 763 ml # Voids 4 4 Laboratory Tests Test 09/02/18 06:00 Sodium Level 141 MMOL/L (136-145) Potassium Level 3.0 MMOL/L (3.5-5.1) L Chloride Level 106 MMOL/L (98-107) Carbon Dioxide Level 27 MMOL/L (21-32) Anion Gap 8 mmol/L (5-15) Blood Urea Nitrogen 69 mg/dL (7-18) H Creatinine 3.8 MG/DL (0.55-1.30) H Estimat Glomerular Filtration Rate 16.2 mL/min (>60) Glucose Level 151 MG/DL (74-106) H Calcium Level 8.5 MG/DL (8.5-10.1) Phosphorus Level 3.1 MG/DL (2.5-4.9) Total Bilirubin 0.3 MG/DL (0.2-1.0) Aspartate Amino Transf (AST/SGOT) 14 U/L (15-37) L Alanine Aminotransferase (ALT/SGPT) 19 U/L (12-78) Alkaline Phosphatase 65 U/L (46-116) Total Protein 6.1 G/DL (6.4-8.2) L Albumin 2.2 G/DL (3.4-5.0) L Globulin 3.9 g/dL Albumin/Globulin Ratio 0.6 (1.0-2.7) L Microbiology Date/Time Source Procedure Growth Status 08/31/18 16:35 Blood Blood Culture - Preliminary NO GROWTH AFTER 24 HOURS Resulted 08/31/18 16:30 Blood Blood Culture - Preliminary NO GROWTH AFTER 24 HOURS Resulted 09/01/18 01:15 Nasal Nares Influenza Types A,B Antigen (AWILDA) - Final Complete Objective HEAD AND NECK: No JVD. LUNGS: Clear. CARDIOVASCULAR: Regular S1 and S2 with no gallop or murmur. ABDOMEN: Soft. EXTREMITIES: No pitting edema. Isidoro Magallanes MD Sep 02, 2018 16:52
--- NOTE | 2018-09-02 17:13 | Infectious Diseases Prog Note ---
Assessment/Plan Assessment/Plan ASSESSMENT AND PLAN: 1. possible sepsis, leukocytosis, fevers, sirs + - ceftriaxone empirically until final blood cultures back - f/u on blood cultures - neg x 24 hrs - fevers improved, ua negative, chest x-ray - negative, influenza negative - monitor labs, leukocytosis resolved 2. ckd - renal transplant list per patient 3. Hypokalemia. 4. Anemia. 5. Hypertension. 6. Diabetes. Blood sugar treatment for diabetes per primary and hypertension per primary and consultants. 7. Hypothyroidism. 8. Atrial fibrillation history. 9. Chest pain. Workup per primary and consultants. 10. No known drug allergies. 11. Social history is negative. 12. Family history is noncontributory. 13. MAR was noted. 14. Case discussed with RN. 15. Continue treatment per primary consultants. Subjective Constitutional: Denies: fever HEENT: Denies: congestion Respiratory: Denies: shortness of breath Cardiovascular: Denies: chest pain Gastrointestinal/Abdominal: Denies: nausea, vomiting, diarrhea Genitourinary: Denies: dysuria, hematuria, frequency Neurologic: Denies: headache, numbness Psychiatric: Denies: depression Skin: Denies: rash Hematologic: Denies: bleeding Musculoskeletal: Denies: pain Allergies: Coded Allergies: No Known Allergies (Unverified , 08/29/18) Objective Vital Signs Last 24 Hour Vital Signs Date Time Temp Pulse Resp B/P (MAP) Pulse Ox O2 Delivery O2 Flow Rate FiO2 09/02/18 16:00 97.9 74 18 162/102 (122) 97 09/02/18 13:56 77 156/77 09/02/18 13:52 156/77 09/02/18 13:25 97.1 09/02/18 12:25 161/68 09/02/18 12:00 97.1 77 18 156/77 (103) 97 09/02/18 12:00 82 09/02/18 09:00 Nasal Cannula 2.0 09/02/18 08:00 97.1 75 18 161/68 (99) 97 09/02/18 08:00 72 09/02/18 05:38 173/77 09/02/18 05:38 173/77 09/02/18 04:00 98.2 76 18 150/80 (103) 97 09/02/18 04:00 43 09/02/18 00:00 97.7 74 18 160/97 (118) 99 09/02/18 00:00 66 09/01/18 23:34 160/97 09/01/18 21:37 191/89 09/01/18 21:00 Nasal Cannula 2.0 09/01/18 20:26 194/109 09/01/18 20:00 78 09/01/18 20:00 98.3 78 18 179/106 (130) 97 09/01/18 17:15 70 153/79 Height (Feet): 5 Height (Inches): 6.00 Weight (Pounds): 180 General Appearance: no acute distress HEENT: normocephalic, atraumatic, anicteric, mucous membranes moist Respiratory/Chest: lungs clear, normal breath sounds, no respiratory distress, no accessory muscle use Cardiovascular: normal rate, regular rhythm, no gallop/murmur, no JVD Abdomen: normal bowel sounds, soft, non tender, no organomegaly, non distended Genitourinary: other - no rivas Extremities: no cyanosis Skin: no rash Neurologic/Psychiatric: 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 Heart size is upper limits of normal Impression: No acute process Microbiology Date/Time Source Procedure Growth Status 08/31/18 16:35 Blood Blood Culture - Preliminary NO GROWTH AFTER 24 HOURS Resulted 08/31/18 16:30 Blood Blood Culture - Preliminary NO GROWTH AFTER 24 HOURS Resulted 09/01/18 01:15 Nasal Nares Influenza Types A,B Antigen (AWILDA) - Final Complete Labs Test 08/30/18 17:15 08/31/18 05:20 08/31/18 06:50 08/31/18 16:30 Urine Random Sodium < 20 mmol/L (20-110) Urine Eosinophils None seen (NONE SEEN) White Blood Count 7.3 K/UL (4.8-10.8) Red Blood Count 3.71 M/UL (4.70-6.10) Hemoglobin 9.5 G/DL (14.2-18.0) Hematocrit 28.8 % (42.0-52.0) Mean Corpuscular Volume 78 FL (80-99) Mean Corpuscular Hemoglobin 25.5 PG (27.0-31.0) Mean Corpuscular Hemoglobin Concent 32.9 G/DL (32.0-36.0) Red Cell Distribution Width 12.5 % (11.6-14.8) Platelet Count 126 K/UL (150-450) Mean Platelet Volume 6.7 FL (6.5-10.1) Neutrophils (%) (Auto) % (45.0-75.0) Lymphocytes (%) (Auto) % (20.0-45.0) Monocytes (%) (Auto) % (1.0-10.0) Eosinophils (%) (Auto) % (0.0-3.0) Basophils (%) (Auto) % (0.0-2.0) Differential Total Cells Counted 100 Neutrophils % (Manual) 86 % (45-75) Lymphocytes % (Manual) 4 % (20-45) Monocytes % (Manual) 10 % (1-10) Eosinophils % (Manual) 0 % (0-3) Basophils % (Manual) 0 % (0-2) Band Neutrophils 0 % (0-8) Platelet Estimate Decreased Platelet Morphology Normal Microcytosis 1+ Sodium Level 138 MMOL/L (136-145) Potassium Level 3.0 MMOL/L (3.5-5.1) Chloride Level 102 MMOL/L (98-107) Carbon Dioxide Level 25 MMOL/L (21-32) Anion Gap 11 mmol/L (5-15) Blood Urea Nitrogen 82 mg/dL (7-18) Creatinine 4.7 MG/DL (0.55-1.30) Estimat Glomerular Filtration Rate 12.7 mL/min (>60) Glucose Level 143 MG/DL (74-106) Hemoglobin A1c 6.1 % (4.3-6.0) Uric Acid 10.8 MG/DL (2.6-7.2) Calcium Level 8.3 MG/DL (8.5-10.1) Phosphorus Level 3.2 MG/DL (2.5-4.9) Magnesium Level 1.8 MG/DL (1.8-2.4) Iron Level 10 ug/dL (50-175) Total Iron Binding Capacity 159 ug/dL (250-450) Percent Iron Saturation 6 % (15-50) Unsaturated Iron Binding 149 ug/dL (112-346) Ferritin 1346 NG/ML (8-388) Total Bilirubin 0.5 MG/DL (0.2-1.0) Gamma Glutamyl Transpeptidase 6 U/L (5-85) Aspartate Amino Transf (AST/SGOT) 16 U/L (15-37) Alanine Aminotransferase (ALT/SGPT) 18 U/L (12-78) Alkaline Phosphatase 71 U/L (46-116) Troponin I 0.042 ng/mL (0.000-0.056) C-Reactive Protein, Quantitative 14.9 mg/dL (0.00-0.90) Pro-B-Type Natriuretic Peptide 6867 pg/mL (0-125) Total Protein 6.0 G/DL (6.4-8.2) Albumin 2.3 G/DL (3.4-5.0) Globulin 3.7 g/dL Albumin/Globulin Ratio 0.6 (1.0-2.7) Triglycerides Level 287 MG/DL (30-150) Cholesterol Level 165 MG/DL (< 200) LDL Cholesterol 78 mg/dL (<100) HDL Cholesterol 28 MG/DL (40-60) Cholesterol/HDL Ratio 5.9 (3.3-4.4) Vitamin B12 Level 488 PG/ML (193-986) Folate 79.6 NG/ML (8.6-58.9) Thyroid Stimulating Hormone (TSH) 3.320 uiU/mL (0.358-3.740) Lactic Acid Level 0.70 mmol/L (0.4-2.0) Test 09/01/18 01:00 09/01/18 10:50 09/02/18 06:00 Urine Eosinophils None seen (NONE SEEN) White Blood Count 5.7 K/UL (4.8-10.8) Red Blood Count 3.71 M/UL (4.70-6.10) Hemoglobin 9.5 G/DL (14.2-18.0) Hematocrit 28.6 % (42.0-52.0) Mean Corpuscular Volume 77 FL (80-99) Mean Corpuscular Hemoglobin 25.7 PG (27.0-31.0) Mean Corpuscular Hemoglobin Concent 33.3 G/DL (32.0-36.0) Red Cell Distribution Width 12.7 % (11.6-14.8) Platelet Count 161 K/UL (150-450) Mean Platelet Volume 7.4 FL (6.5-10.1) Neutrophils (%) (Auto) 79.3 % (45.0-75.0) Lymphocytes (%) (Auto) 8.9 % (20.0-45.0) Monocytes (%) (Auto) 9.6 % (1.0-10.0) Eosinophils (%) (Auto) 1.2 % (0.0-3.0) Basophils (%) (Auto) 1.0 % (0.0-2.0) Sodium Level 137 MMOL/L (136-145) 141 MMOL/L (136-145) Potassium Level 3.5 MMOL/L (3.5-5.1) 3.0 MMOL/L (3.5-5.1) Chloride Level 103 MMOL/L (98-107) 106 MMOL/L (98-107) Carbon Dioxide Level 27 MMOL/L (21-32) 27 MMOL/L (21-32) Anion Gap 7 mmol/L (5-15) 8 mmol/L (5-15) Blood Urea Nitrogen 81 mg/dL (7-18) 69 mg/dL (7-18) Creatinine 4.4 MG/DL (0.55-1.30) 3.8 MG/DL (0.55-1.30) Estimat Glomerular Filtration Rate 13.7 mL/min (>60) 16.2 mL/min (>60) Glucose Level 170 MG/DL (74-106) 151 MG/DL (74-106) Uric Acid 10.5 MG/DL (2.6-7.2) Calcium Level 8.6 MG/DL (8.5-10.1) 8.5 MG/DL (8.5-10.1) Phosphorus Level 3.0 MG/DL (2.5-4.9) 3.1 MG/DL (2.5-4.9) Magnesium Level 2.1 MG/DL (1.8-2.4) Total Bilirubin 0.4 MG/DL (0.2-1.0) 0.3 MG/DL (0.2-1.0) Gamma Glutamyl Transpeptidase 7 U/L (5-85) Aspartate Amino Transf (AST/SGOT) 14 U/L (15-37) 14 U/L (15-37) Alanine Aminotransferase (ALT/SGPT) 17 U/L (12-78) 19 U/L (12-78) Alkaline Phosphatase 68 U/L (46-116) 65 U/L (46-116) Pro-B-Type Natriuretic Peptide 93752 pg/mL (0-125) Total Protein 6.1 G/DL (6.4-8.2) 6.1 G/DL (6.4-8.2) Albumin 2.2 G/DL (3.4-5.0) 2.2 G/DL (3.4-5.0) Globulin 3.9 g/dL 3.9 g/dL Albumin/Globulin Ratio 0.6 (1.0-2.7) 0.6 (1.0-2.7) Prostate Specific Antigen 1.08 ng/mL (0.13-4.0) Laboratory Tests Test 09/02/18 06:00 Sodium Level 141 MMOL/L (136-145) Potassium Level 3.0 MMOL/L (3.5-5.1) L Chloride Level 106 MMOL/L (98-107) Carbon Dioxide Level 27 MMOL/L (21-32) Anion Gap 8 mmol/L (5-15) Blood Urea Nitrogen 69 mg/dL (7-18) H Creatinine 3.8 MG/DL (0.55-1.30) H Estimat Glomerular Filtration Rate 16.2 mL/min (>60) Glucose Level 151 MG/DL (74-106) H Calcium Level 8.5 MG/DL (8.5-10.1) Phosphorus Level 3.1 MG/DL (2.5-4.9) Total Bilirubin 0.3 MG/DL (0.2-1.0) Aspartate Amino Transf (AST/SGOT) 14 U/L (15-37) L Alanine Aminotransferase (ALT/SGPT) 19 U/L (12-78) Alkaline Phosphatase 65 U/L (46-116) Total Protein 6.1 G/DL (6.4-8.2) L Albumin 2.2 G/DL (3.4-5.0) L Globulin 3.9 g/dL Albumin/Globulin Ratio 0.6 (1.0-2.7) L Current Medications Medications (Trade) Dose Ordered Sig/Swathi Route PRN Reason Start Time Stop Time Status Last Admin Dose Admin Acetaminophen (Tylenol) 650 mg Q4H PRN ORAL Mild Pain (Pain Scale 1-3) 08/29/18 17:30 09/28/18 17:14 09/02/18 12:55 Allopurinol (Allopurinol) 300 mg DAILY ORAL 09/01/18 09:00 10/01/18 08:59 09/02/18 09:01 Apixaban (Eliquis) 5 mg BID ORAL 08/30/18 09:00 09/29/18 08:59 09/02/18 09:01 Aspirin (Ecotrin) 81 mg DAILY ORAL 08/30/18 09:00 09/29/18 08:59 09/02/18 09:01 Ceftriaxone Sodium 1 gm/ Dextrose 50 ml @ 100 mls/hr Q24H IVPB 08/31/18 17:00 09/07/18 16:59 09/01/18 17:09 Dextrose (Dextrose 50%) 25 ml Q30M PRN IV Hypoglycemia 08/29/18 17:30 09/28/18 17:29 Dextrose (Dextrose 50%) 50 ml Q30M PRN IV Hypoglycemia 08/29/18 17:30 09/28/18 17:29 Dextrose/Sodium Chloride 1,000 ml @ 75 mls/hr [id number] IV 08/30/18 14:00 09/29/18 13:59 09/02/18 08:59 Docusate Sodium (Colace) 100 mg TID ORAL 08/31/18 13:00 09/28/18 20:59 09/02/18 13:53 Hydralazine HCl (Apresoline) 75 mg Q8HR ORAL 09/02/18 14:00 09/30/18 13:59 09/02/18 13:52 Insulin Aspart (NovoLOG) BEFORE MEALS AND HS SUBQ 08/29/18 21:00 09/28/18 20:59 09/02/18 12:27 Levothyroxine Sodium (Synthroid) 100 mcg ACBREAKFAST ORAL 08/30/18 06:30 09/29/18 06:29 Lorazepam (Ativan 2mg/ml 1ml) 0.5 mg Q4H PRN IV For Anxiety 08/29/18 17:30 09/05/18 17:14 09/02/18 09:11 Minoxidil (Loniten) 2.5 mg Q4H PRN ORAL bp over 165 syst 08/31/18 12:00 09/30/18 11:59 09/01/18 20:26 Morphine Sulfate (Morphine Sulfate) 2 mg Q4H PRN IVP Severe Pain (Pain Scale 7-10) 08/29/18 21:00 09/05/18 20:59 09/01/18 19:46 Nifedipine (Procardia XL) 30 mg BID ORAL 09/02/18 18:00 10/02/18 17:59 Ondansetron HCl (Zofran) 4 mg Q6H PRN IVP Nausea & Vomiting 08/29/18 17:30 09/28/18 17:14 08/30/18 21:24 Pantoprazole (Protonix) 40 mg EVERY 12 HOURS ORAL 08/30/18 21:00 09/29/18 20:59 09/02/18 09:01 Potassium Chloride (K-Dur) 40 meq TWICE A DAY ORAL 09/02/18 18:00 10/02/18 17:59 Tamsulosin HCl (Flomax) 0.4 mg BID ORAL 08/31/18 18:00 09/29/18 20:59 09/02/18 09:01 Rodrigue Teixeira MD Sep 02, 2018 17:13
--- NOTE | 2018-09-02 17:16 | NUR ---
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 Isidoro Magallanes.
[2018-09-02] MEDS: Morphine Sulfate 2mg/ml Inj(IV/IM USE ONLY) IVP PRN (17:31)
[2018-09-02] MEDS: cefTRIAXone 1 GM in D5W 50 ML IVPB SCH (17:32)
--- NOTE | 2018-09-02 19:40 | NUR ---
NURSE NOTES: Received report from KAMILLE Lyle. patient awake, alert and verbally responsive. No SOB, no acute distress, denies any pain nor any discomfort at this time. Per pt, he had some headache earlier and Tylenol was administered. IV site on R FA # [id number], patent and intact connected to D5 1/2 NS at 75 ml/hr. at bedside. Bed at lowest position, call light within reach. Will continue plan of care.
[2018-09-02 20:00] VITALS: BP 185/105
[2018-09-02] MEDS: Minoxidil 2.5mg tab ORAL PRN (20:51)
[2018-09-03] VITALS: BP 159/91
--- NOTE | 2018-09-03 01:29 | Cardiology Report ---
APPROVED REPORT EKG Measurement Heart [id number] Normal sinus rhythm Left axis deviation Nonspecific ST abnormality Abnormal ECG
--- NOTE | 2018-09-03 01:32 | Cardiology Report ---
APPROVED REPORT EKG Measurement Heart [id number] ID [id number] Sinus rhythm with 1st degree AV block with blocked premature atrial complexes with premature supraventricular complexes Nonspecific ST and T wave abnormality Abnormal ECG
[2018-09-03] MEDS: Morphine Sulfate 2mg/ml Inj(IV/IM USE ONLY) IVP PRN ×3 (02:46→15:04)
[2018-09-03] MEDS: Minoxidil 2.5mg tab ORAL PRN (03:21)
[2018-09-03 04:00] VITALS: BP 145/67
--- NOTE | 2018-09-03 04:29 | NUR ---
NURSE NOTES: Patient asleep now, complaining of severe headache earlier, Morphine administered as ordered, B/P checked, 184/107, Minoxidil 2.5 mg administered PRN for high BP, rechecked after 30 minutes, BP 145/67, per pt, headache still there but tolerable this time. Remains afib/aflutter at the court monitor. Will continue to monitor.
[2018-09-03] MEDS: HydrALAZINE 25mg tab ORAL SCH ×3 (06:01→21:14)
[2018-09-03] MEDS: NovoLOG Insulin Flexpen SUBQ SCH ×4 (06:30→21:16)
--- NOTE | 2018-09-03 07:03 | NUR ---
HAND-OFF: Report given to KAMILLE Gupta. Endorsed plan of care.
--- NOTE | 2018-09-03 07:21 | NUR ---
NURSE NOTES: pt awake alert, no distress. no c/o pain. call light within reach. bed in lowest position, locked
[2018-09-03 07:33] LABS: BASOPHILS % (AUTO) 0.9 % (0.0-2.0); EOSINOPHILS % (AUTO) 3.9 % (0.0-3.0); HEMATOCRIT 31.6 % (42.0-52.0); HEMOGLOBIN 10.3 G/DL (14.2-18.0); LYMPHOCYTES % (AUTO) 13.6 % (20.0-45.0); MEAN CORPUSCULAR VOLUME 78 FL (80-99); MONOCYTES % (AUTO) 6.4 % (1.0-10.0); NEUTROPHILS % (AUTO) 75.2 % (45.0-75.0); PLATELET COUNT 212 K/UL (150-450); RED BLOOD COUNT 4.03 M/UL (4.70-6.10); WHITE BLOOD COUNT 6.2 K/UL (4.8-10.8)
[2018-09-03 08:22] VITALS: BP 148/73
[2018-09-03 08:25] LABS: ALANINE AMINOTRANSFERASE 11 U/L (12-78); ALBUMIN 2.4 G/DL (3.4-5.0); ALBUMIN/GLOBULIN RATIO 0.6 (1.0-2.7); ALKALINE PHOSPHATASE 69 U/L (46-116); ANION GAP 11 mmol/L (5-15); ASPARTATE AMINO TRANSFERASE 15 U/L (15-37); BILIRUBIN,TOTAL 0.2 MG/DL (0.2-1.0); BLOOD UREA NITROGEN 55 mg/dL (7-18); CALCIUM 8.7 MG/DL (8.5-10.1); CARBON DIOXIDE 23 MMOL/L (21-32); CHLORIDE 109 MMOL/L (98-107); CREATININE 3.1 MG/DL (0.55-1.30); PHOSPHORUS 3.1 MG/DL (2.5-4.9); POTASSIUM 3.8 MMOL/L (3.5-5.1); SODIUM 142 MMOL/L (136-145)
--- NOTE | 2018-09-03 08:35 | NUR ---
NURSE NOTES: pt c/o headache and nausea and states "I cant take anything right now, and tylenol and zofran doesnt work" zofran not due yet . rn will page re patient c/o headache and ineffectiveness of medications Addendum: 09/03/18 at 0855 by IDA LOPES RN Dr James made aware of above situation in person ( doing rounds)
[2018-09-03] MEDS: Docusate 100mg cap ORAL SCH ×4 (08:40→17:13)
[2018-09-03] MEDS: Eliquis 2.5mg tablet ORAL SCH ×3 (08:40→17:13)
[2018-09-03] MEDS: Aspirin EC 81mg tab ORAL SCH ×2 (08:40→09:58)
[2018-09-03] MEDS: Tamsulosin 0.4mg cap ORAL SCH ×3 (08:40→17:14)
[2018-09-03] MEDS ORDERED: Metoclopramide 10mg/2ml Inj IVP SCH (09:00)
[2018-09-03] MEDS ORDERED: SUMAtriptan 6mg/0.5ml Inj SUBQ ONE (09:30)
[2018-09-03] MEDS: D5NS 1,000 ML IV SCH ×2 (10:16→21:15)
[2018-09-03 12:18] VITALS: BP 142/82
--- NOTE | 2018-09-03 13:18 | Nephrology Progress Note ---
Assessment/Plan Problem List: (1) CKD (chronic kidney disease) stage 5, GFR less than 15 ml/min Assessment: CR LOWERING (2) Hypertensive kidney disease (3) Anemia in chronic kidney disease (CKD) Assessment Known CKD now superimposed acute renal failure cr down to 4.4 4+ Proteinuria HTN ooc DM Apparent right renal solid lesion, more questionable left renal solid lesion. Splenomegaly L1 vertebral body wedge/vertebra plana compression fracture deformity resulting in 60% height loss. bilateral superficial femoral arterial stents, Plan STOP CLONIDINE PATIENT HAS PERIODIC BRADYCARDIA Hydrate Flomax Kidney RICARDO pending urine studies Avoid nephrotoxics Anemia retana fluid challenge adjust bp meds per orders Subjective ROS Limited/Unobtainable: No Constitutional: Reports: malaise Objective Objective Last 24 Hour Vital Signs Date Time Temp Pulse Resp B/P (MAP) Pulse Ox O2 Delivery O2 Flow Rate FiO2 09/03/18 12:18 97.7 102 18 142/82 (102) 99 09/03/18 11:46 99 09/03/18 09:58 74 148/73 09/03/18 08:22 97.7 74 18 148/73 (98) 99 09/03/18 07:29 86 09/03/18 07:26 Nasal Cannula 2.0 09/03/18 07:17 97.7 09/03/18 06:01 160/84 09/03/18 04:00 97.7 79 18 145/67 (93) 99 09/03/18 04:00 79 09/03/18 03:21 184/107 09/03/18 00:00 98.2 67 18 159/91 (113) 98 09/03/18 00:00 67 09/02/18 21:57 157/76 09/02/18 21:00 Nasal Cannula 2.0 09/02/18 20:51 185/105 09/02/18 20:00 71 09/02/18 20:00 98.3 71 18 185/105 (131) 99 09/02/18 17:29 74 162/102 09/02/18 16:00 64 09/02/18 16:00 97.9 74 18 162/102 (122) 97 09/02/18 13:56 77 156/77 09/02/18 13:52 156/77 09/02/18 13:25 97.1 Intake and Output 09/02/18 09/03/18 19:00 07:00 Intake Total 2150 ml 1139 ml Balance 2150 ml 1139 ml Intake Oral 1200 ml 240 ml IV Total 950 ml 899 ml # Voids 4 3 Laboratory Tests 09/03/18 06:19: White Blood Count 6.2, Red Blood Count 4.03L, Hemoglobin 10.3L, Hematocrit 31.6L , Mean Corpuscular Volume 78L, Mean Corpuscular Hemoglobin 25.5L, Mean Corpuscular Hemoglobin Concent 32.6, Red Cell Distribution Width 13.0, Platelet Count 212, Mean Platelet Volume 6.3L, Neutrophils (%) (Auto) 75.2H, Lymphocytes (%) (Auto) 13.6L, Monocytes (%) (Auto) 6.4, Eosinophils (%) (Auto) 3.9H, Basophils (%) (Auto) 0.9, Sodium Level 142, Potassium Level 3.8, Chloride Level 109H, Carbon Dioxide Level 23, Anion Gap 11, Blood Urea Nitrogen 55H, Creatinine 3.1H, Estimat Glomerular Filtration Rate 20.5, Glucose Level 139H, Uric Acid 7.2, Calcium Level 8.7, Phosphorus Level 3.1, Magnesium Level 1.8, Total Bilirubin 0.2, Aspartate Amino Transf (AST/SGOT) 15, Alanine Aminotransferase (ALT/SGPT) 11L, Alkaline Phosphatase 69, C-Reactive Protein, Quantitative 7.2H, Pro-B-Type Natriuretic Peptide [id number], Total Protein 6.3L, Albumin 2.4L, Globulin 3.9, Albumin/Globulin Ratio 0.6L Height (Feet): 5 Height (Inches): 6.00 Weight (Pounds): 180 General Appearance: no apparent distress Cardiovascular: normal rate Respiratory/Chest: decreased breath sounds Abdomen: soft, distended Gilles Lebron MD Sep 03, 2018 13:18
--- NOTE | 2018-09-03 13:32 | NUR ---
NURSE NOTES: pt asleep arousable, no distress. no c/o pain/headache at this time. no c/o nausea
--- NOTE | 2018-09-03 13:47 | Infectious Diseases Prog Note ---
Assessment/Plan Assessment/Plan ASSESSMENT AND PLAN: 1. possible sepsis, leukocytosis, fevers, sirs +, ? viral syndrome - blood cultures and w/u negative - discontinue ceftriaxone and observe - fevers improved, ua negative, chest x-ray - negative, influenza negative - monitor labs, leukocytosis resolved 2. ckd - renal transplant list per patient 3. Hypokalemia. 4. Anemia. 5. Hypertension. 6. Diabetes. Blood sugar treatment for diabetes per primary and hypertension per primary and consultants. 7. Hypothyroidism. 8. Atrial fibrillation history. 9. Chest pain. Workup per primary and consultants. 10. No known drug allergies. 11. Social history is negative. 12. Family history is noncontributory. 13. MAR was noted. 14. Case discussed with RN. 15. Continue treatment per primary consultants. Subjective Constitutional: Denies: fever HEENT: Denies: congestion Respiratory: Denies: shortness of breath Cardiovascular: Denies: chest pain Gastrointestinal/Abdominal: Denies: nausea, vomiting, diarrhea Genitourinary: Denies: dysuria Neurologic: Denies: headache Psychiatric: Denies: depression Skin: Denies: rash Hematologic: Denies: other Musculoskeletal: Denies: pain Allergies: Coded Allergies: No Known Allergies (Unverified , 08/29/18) Objective Vital Signs Last 24 Hour Vital Signs Date Time Temp Pulse Resp B/P (MAP) Pulse Ox O2 Delivery O2 Flow Rate FiO2 09/03/18 13:28 142/82 09/03/18 12:18 97.7 102 18 142/82 (102) 99 09/03/18 11:46 99 09/03/18 09:58 74 148/73 09/03/18 08:22 97.7 74 18 148/73 (98) 99 09/03/18 07:29 86 09/03/18 07:26 Nasal Cannula 2.0 09/03/18 07:17 97.7 09/03/18 06:01 160/84 09/03/18 04:00 97.7 79 18 145/67 (93) 99 09/03/18 04:00 79 09/03/18 03:21 184/107 09/03/18 00:00 98.2 67 18 159/91 (113) 98 09/03/18 00:00 67 09/02/18 21:57 157/76 09/02/18 21:00 Nasal Cannula 2.0 09/02/18 20:51 185/105 09/02/18 20:00 71 09/02/18 20:00 98.3 71 18 185/105 (131) 99 09/02/18 17:29 74 162/102 09/02/18 16:00 64 09/02/18 16:00 97.9 74 18 162/102 (122) 97 09/02/18 13:56 77 156/77 09/02/18 13:52 156/77 Height (Feet): 5 Height (Inches): 6.00 Weight (Pounds): 180 General Appearance: no acute distress HEENT: normocephalic, atraumatic, anicteric, mucous membranes moist Respiratory/Chest: lungs clear, normal breath sounds, no respiratory distress, no accessory muscle use Cardiovascular: normal rate, regular rhythm, no gallop/murmur, no JVD Abdomen: normal bowel sounds, soft, non tender, no organomegaly, non distended Genitourinary: other - no rivas, no cva pain Extremities: no cyanosis Skin: no rash Neurologic/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 Heart size is upper limits of normal Impression: No acute process Microbiology Date/Time Source Procedure Growth Status 08/31/18 16:35 Blood Blood Culture - Preliminary NO GROWTH AFTER 48 HOURS Resulted 08/31/18 16:30 Blood Blood Culture - Preliminary NO GROWTH AFTER 48 HOURS Resulted 09/01/18 01:15 Nasal Nares Influenza Types A,B Antigen (AWILDA) - Final Complete Laboratory Tests Test 09/03/18 06:19 White Blood Count 6.2 K/UL (4.8-10.8) Red Blood Count 4.03 M/UL (4.70-6.10) L Hemoglobin 10.3 G/DL (14.2-18.0) L Hematocrit 31.6 % (42.0-52.0) L Mean Corpuscular Volume 78 FL (80-99) L Mean Corpuscular Hemoglobin 25.5 PG (27.0-31.0) L Mean Corpuscular Hemoglobin Concent 32.6 G/DL (32.0-36.0) Red Cell Distribution Width 13.0 % (11.6-14.8) Platelet Count 212 K/UL (150-450) Mean Platelet Volume 6.3 FL (6.5-10.1) L Neutrophils (%) (Auto) 75.2 % (45.0-75.0) H Lymphocytes (%) (Auto) 13.6 % (20.0-45.0) L Monocytes (%) (Auto) 6.4 % (1.0-10.0) Eosinophils (%) (Auto) 3.9 % (0.0-3.0) H Basophils (%) (Auto) 0.9 % (0.0-2.0) Sodium Level 142 MMOL/L (136-145) Potassium Level 3.8 MMOL/L (3.5-5.1) Chloride Level 109 MMOL/L (98-107) H Carbon Dioxide Level 23 MMOL/L (21-32) Anion Gap 11 mmol/L (5-15) Blood Urea Nitrogen 55 mg/dL (7-18) H Creatinine 3.1 MG/DL (0.55-1.30) H Estimat Glomerular Filtration Rate 20.5 mL/min (>60) Glucose Level 139 MG/DL (74-106) H Uric Acid 7.2 MG/DL (2.6-7.2) Calcium Level 8.7 MG/DL (8.5-10.1) Phosphorus Level 3.1 MG/DL (2.5-4.9) Magnesium Level 1.8 MG/DL (1.8-2.4) Total Bilirubin 0.2 MG/DL (0.2-1.0) Aspartate Amino Transf (AST/SGOT) 15 U/L (15-37) Alanine Aminotransferase (ALT/SGPT) 11 U/L (12-78) L Alkaline Phosphatase 69 U/L (46-116) C-Reactive Protein, Quantitative 7.2 mg/dL (0.00-0.90) H Pro-B-Type Natriuretic Peptide 93595 pg/mL (0-125) H Total Protein 6.3 G/DL (6.4-8.2) L Albumin 2.4 G/DL (3.4-5.0) L Globulin 3.9 g/dL Albumin/Globulin Ratio 0.6 (1.0-2.7) L Current Medications Medications (Trade) Dose Ordered Sig/Swathi Route PRN Reason Start Time Stop Time Status Last Admin Dose Admin Acetaminophen (Tylenol) 650 mg Q4H PRN ORAL Mild Pain (Pain Scale 1-3) 08/29/18 17:30 09/28/18 17:14 09/03/18 01:06 Allopurinol (Allopurinol) 300 mg DAILY ORAL 09/01/18 09:00 10/01/18 08:59 09/03/18 09:59 Apixaban (Eliquis) 5 mg BID ORAL 08/30/18 09:00 09/29/18 08:59 09/03/18 09:58 Aspirin (Ecotrin) 81 mg DAILY ORAL 08/30/18 09:00 09/29/18 08:59 09/03/18 09:58 Ceftriaxone Sodium 1 gm/ Dextrose 50 ml @ 100 mls/hr Q24H IVPB 08/31/18 17:00 09/07/18 16:59 09/02/18 17:32 Dextrose (Dextrose 50%) 25 ml Q30M PRN IV Hypoglycemia 08/29/18 17:30 09/28/18 17:29 Dextrose (Dextrose 50%) 50 ml Q30M PRN IV Hypoglycemia 08/29/18 17:30 09/28/18 17:29 Dextrose/Sodium Chloride 1,000 ml @ 75 mls/hr [id number] IV 08/30/18 14:00 09/29/18 13:59 09/03/18 10:16 Docusate Sodium (Colace) 100 mg TID ORAL 08/31/18 13:00 09/28/18 20:59 09/03/18 12:20 Hydralazine HCl (Apresoline) 75 mg Q8HR ORAL 09/02/18 14:00 09/30/18 13:59 09/03/18 13:28 Insulin Aspart (NovoLOG) BEFORE MEALS AND HS SUBQ 08/29/18 21:00 09/28/18 20:59 09/03/18 11:24 Levothyroxine Sodium (Synthroid) 100 mcg ACBREAKFAST ORAL 08/30/18 06:30 09/29/18 06:29 Lorazepam (Ativan 2mg/ml 1ml) 0.5 mg Q4H PRN IV For Anxiety 08/29/18 17:30 09/05/18 17:14 09/02/18 09:11 Metoclopramide HCl (Reglan) 10 mg Q6H PRN IVP Nausea & Vomiting 09/03/18 15:00 10/03/18 14:59 Minoxidil (Loniten) 2.5 mg Q4H PRN ORAL bp over 165 syst 08/31/18 12:00 09/30/18 11:59 09/03/18 03:21 Morphine Sulfate (Morphine Sulfate) 2 mg Q4H PRN IVP Severe Pain (Pain Scale 7-10) 08/29/18 21:00 09/05/18 20:59 09/03/18 06:47 Nifedipine (Procardia XL) 30 mg BID ORAL 09/02/18 18:00 10/02/18 17:59 09/03/18 09:58 Ondansetron HCl (Zofran) 4 mg Q6H PRN IVP Nausea & Vomiting 08/29/18 17:30 09/28/18 17:14 09/03/18 03:12 Pantoprazole (Protonix) 40 mg EVERY 12 HOURS ORAL 08/30/18 21:00 09/29/18 20:59 09/03/18 09:58 Potassium Chloride (K-Dur) 40 meq TWICE A DAY ORAL 09/02/18 18:00 10/02/18 17:59 09/03/18 09:58 Sumatriptan Succinate (Imitrex) 6 mg DAILYPRN PRN SUBQ For Headache 09/03/18 15:00 10/03/18 14:59 Tamsulosin HCl (Flomax) 0.4 mg BID ORAL 08/31/18 18:00 09/29/18 20:59 09/03/18 09:58 Rodrigue Teixeira MD Sep 03, 2018 13:47
--- NOTE | 2018-09-03 14:27 | NUR ---
CASE MANAGEMENT:REVIEW 09/03/2018 SI: AC/CHR RENAL FAILURE. BRADYCARDIA POSSIBLE SEPSIS T 97.7 HR 102 RR 18 B/P 142/82 SATS 99% ON 2L/NC CL 109 BUN 55 CR 3.1 GLU 139 ALT 11 BNP 74750 IS: CLONIDINE PO Q6HRS ALLOPURINOL PO QD FLOMAX PO BID IV ROCEPHIN Q24H HYDRALAZINE PO Q8HRS IVF@74/HR ASA PO QD ELIQUIS PO BID SYNTHROID PO QAM : TELEMETRY STATUS DCP: FROM HOME
--- NOTE | 2018-09-03 14:29 | NUR ---
INSURANCE CLINICAL REVIEWS FAXED TO [facility]: TRE P- [phone] F- [phone].....REVIEW/CLINICAL
[2018-09-03] MEDS ORDERED: Metoclopramide 10mg/2ml Inj IVP PRN (15:00)
[2018-09-03] MEDS ORDERED: SUMAtriptan 6mg/0.5ml Inj SUBQ PRN (15:00)
[2018-09-03 15:53] VITALS: BP 150/78
--- NOTE | 2018-09-03 16:49 | NUR ---
NURSE NOTES: Dr Magallanes explained risks and benefits of pacemaker insertion in detail to patient , patient states "will think about it"
--- NOTE | 2018-09-03 17:44 | Cardiac Electrophysiology PN ---
Assessment/Plan Assessment/Plan 1. Paroxysmal atrial flutter. The patient is on apixaban 5 mg b.i.d. Off Sotalol for bradycardia Dropped to 20s-30s after converted to SR at rate 40. Was told needs a pacer but refused 2 weeks ago. Wants to think about it. Will get insurance authorization 2. Hypertension. Off Benazepril for renal failure On Procardia XL 30 bid and Hydralazine 75 q 8hr 3. Bradycardia, heart rate of 50s off Sotalol now 4. Renal failure. Cr 3.1 now Further evaluation by Dr. Lebron. Could be due to italia cardia and low out put failure 5. Diabetes. Continue tele DW RN Subjective Subjective No CP or SOB. Feels weak.Gets italia down to 30s in junctional rhythm. Objective Last 24 Hour Vital Signs Date Time Temp Pulse Resp B/P (MAP) Pulse Ox O2 Delivery O2 Flow Rate FiO2 09/03/18 17:13 100 150/78 09/03/18 15:53 97.7 100 18 150/78 (102) 99 09/03/18 15:35 101 09/03/18 15:34 97.7 09/03/18 13:28 142/82 09/03/18 12:18 97.7 102 18 142/82 (102) 99 09/03/18 11:46 99 09/03/18 09:58 74 148/73 09/03/18 08:22 97.7 74 18 148/73 (98) 99 09/03/18 07:29 86 09/03/18 07:26 Nasal Cannula 2.0 09/03/18 06:01 160/84 09/03/18 04:00 97.7 79 18 145/67 (93) 99 09/03/18 04:00 79 09/03/18 03:21 184/107 09/03/18 00:00 98.2 67 18 159/91 (113) 98 09/03/18 00:00 67 09/02/18 21:57 157/76 09/02/18 21:00 Nasal Cannula 2.0 09/02/18 20:51 185/105 09/02/18 20:00 71 09/02/18 20:00 98.3 71 18 185/105 (131) 99 Intake and Output 09/02/18 09/03/18 18:59 06:59 Intake Total 2225 ml 1064 ml Balance 2225 ml 1064 ml Intake Oral 1200 ml 240 ml IV Total 1025 ml 824 ml # Voids 4 3 Laboratory Tests Test 09/03/18 06:19 White Blood Count 6.2 K/UL (4.8-10.8) Red Blood Count 4.03 M/UL (4.70-6.10) L Hemoglobin 10.3 G/DL (14.2-18.0) L Hematocrit 31.6 % (42.0-52.0) L Mean Corpuscular Volume 78 FL (80-99) L Mean Corpuscular Hemoglobin 25.5 PG (27.0-31.0) L Mean Corpuscular Hemoglobin Concent 32.6 G/DL (32.0-36.0) Red Cell Distribution Width 13.0 % (11.6-14.8) Platelet Count 212 K/UL (150-450) Mean Platelet Volume 6.3 FL (6.5-10.1) L Neutrophils (%) (Auto) 75.2 % (45.0-75.0) H Lymphocytes (%) (Auto) 13.6 % (20.0-45.0) L Monocytes (%) (Auto) 6.4 % (1.0-10.0) Eosinophils (%) (Auto) 3.9 % (0.0-3.0) H Basophils (%) (Auto) 0.9 % (0.0-2.0) Sodium Level 142 MMOL/L (136-145) Potassium Level 3.8 MMOL/L (3.5-5.1) Chloride Level 109 MMOL/L (98-107) H Carbon Dioxide Level 23 MMOL/L (21-32) Anion Gap 11 mmol/L (5-15) Blood Urea Nitrogen 55 mg/dL (7-18) H Creatinine 3.1 MG/DL (0.55-1.30) H Estimat Glomerular Filtration Rate 20.5 mL/min (>60) Glucose Level 139 MG/DL (74-106) H Uric Acid 7.2 MG/DL (2.6-7.2) Calcium Level 8.7 MG/DL (8.5-10.1) Phosphorus Level 3.1 MG/DL (2.5-4.9) Magnesium Level 1.8 MG/DL (1.8-2.4) Total Bilirubin 0.2 MG/DL (0.2-1.0) Aspartate Amino Transf (AST/SGOT) 15 U/L (15-37) Alanine Aminotransferase (ALT/SGPT) 11 U/L (12-78) L Alkaline Phosphatase 69 U/L (46-116) C-Reactive Protein, Quantitative 7.2 mg/dL (0.00-0.90) H Pro-B-Type Natriuretic Peptide 72827 pg/mL (0-125) H Total Protein 6.3 G/DL (6.4-8.2) L Albumin 2.4 G/DL (3.4-5.0) L Globulin 3.9 g/dL Albumin/Globulin Ratio 0.6 (1.0-2.7) L Microbiology Date/Time Source Procedure Growth Status 09/01/18 01:15 Nasal Nares Influenza Types A,B Antigen (AWILDA) - Final Complete Objective HEAD AND NECK: No JVD. LUNGS: Clear. CARDIOVASCULAR: Regular S1 and S2 with no gallop or murmur. ABDOMEN: Soft. EXTREMITIES: No pitting edema. Isidoro Magallanes MD Sep 03, 2018 17:44
--- NOTE | 2018-09-03 19:13 | NUR ---
HAND-OFF: Report given to KASH SIMENTAL.
--- NOTE | 2018-09-03 19:15 | NUR ---
NURSE NOTES: Received report from Selwyn Martinez RN. Patient in bed AAO X4 with at bedside. HOB elevated at semi fowlers. Kept clean, dry, and comfortable in bed with no complaints of acute pain at this time. IV line intact and patent and on continuos IV fluids. Continent and is able to go BRP with minimal assistance. Placed on continuos cardiac monitoring per protocol and noted sustained Afib/flutter. Awaiting for PM placement per MD Sona. Patient prefers primary MD outside [facility] and wants to have procedure done in outpatient setting. Safety precaution in place; siderails x3 up, call light within reach, bed in lowest position, breaks and alarm on at all times. 02 sat at 96-97% on RA with no S/S of respiratory distress. Will continue plan of care and monitor for any changes noted.
[2018-09-03 20:00] VITALS: BP 167/89
--- NOTE | 2018-09-03 20:15 | General Progress Note ---
Assessment/Plan Assessment/Plan #Chest pain without acutely ischemic EKG and negative initial trop #history of Atrial fibrillation on Eliquis #history of HTN #Bradycardia -Cont telemetry -serial cardiac enzymes - unremarkable -sotalol discontinued per cardiology -hold ACEI/ARB/Lasix and monitor renal function -Appreciate cardiology consult -may need PPM - pt is considering it, pending insurance approval #Leukocytosis #SIRS -Unclear source of SIRS, -no definite infectious process identified at this time -trend temp curve -ID consult appreciated -cont abx per ID #Hypokalemia -repleted -CTM #Headache -treat symptomatically -CT head negative #CKD, unknown baseline creatinine #Hypokalemia #BPH -Cr trending down -hold nephrotoxic meds -Nephrology consult appreciated #Hypertension -Clonidine discontinued due to episodes of bradycardia -BP meds adjusted per nephrology -cont hydralazine and procardia #Type 2 DM -lispro sliding scale for now VTE PPx Eliquis Full Code Subjective Allergies: Coded Allergies: No Known Allergies (Unverified , 08/29/18) Subjective No acute overnight events, norvasc d/c due to hx of lower extremity edema, clonidine stopped due to periodic bradycardia, pt complaining of headache, photophobia, improved with sumitriptan Objective Last 24 Hour Vital Signs Date Time Temp Pulse Resp B/P (MAP) Pulse Ox O2 Delivery O2 Flow Rate FiO2 09/03/18 17:13 100 150/78 09/03/18 15:53 97.7 100 18 150/78 (102) 99 09/03/18 15:35 101 09/03/18 15:34 97.7 09/03/18 13:28 142/82 09/03/18 12:18 97.7 102 18 142/82 (102) 99 09/03/18 11:46 99 09/03/18 09:58 74 148/73 09/03/18 08:22 97.7 74 18 148/73 (98) 99 09/03/18 07:29 86 09/03/18 07:26 Nasal Cannula 2.0 09/03/18 06:01 160/84 09/03/18 04:00 97.7 79 18 145/67 (93) 99 09/03/18 04:00 79 09/03/18 03:21 184/107 09/03/18 00:00 98.2 67 18 159/91 (113) 98 09/03/18 00:00 67 09/02/18 21:57 157/76 09/02/18 21:00 Nasal Cannula 2.0 09/02/18 20:51 185/105 Intake and Output 09/02/18 09/03/18 18:59 06:59 Intake Total 2225 ml 1064 ml Balance 2225 ml 1064 ml Intake Oral 1200 ml 240 ml IV Total 1025 ml 824 ml # Voids 4 3 Laboratory Tests 09/03/18 06:19: White Blood Count 6.2, Red Blood Count 4.03L, Hemoglobin 10.3L, Hematocrit 31.6L , Mean Corpuscular Volume 78L, Mean Corpuscular Hemoglobin 25.5L, Mean Corpuscular Hemoglobin Concent 32.6, Red Cell Distribution Width 13.0, Platelet Count 212, Mean Platelet Volume 6.3L, Neutrophils (%) (Auto) 75.2H, Lymphocytes (%) (Auto) 13.6L, Monocytes (%) (Auto) 6.4, Eosinophils (%) (Auto) 3.9H, Basophils (%) (Auto) 0.9, Sodium Level 142, Potassium Level 3.8, Chloride Level 109H, Carbon Dioxide Level 23, Anion Gap 11, Blood Urea Nitrogen 55H, Creatinine 3.1H, Estimat Glomerular Filtration Rate 20.5, Glucose Level 139H, Uric Acid 7.2, Calcium Level 8.7, Phosphorus Level 3.1, Magnesium Level 1.8, Total Bilirubin 0.2, Aspartate Amino Transf (AST/SGOT) 15, Alanine Aminotransferase (ALT/SGPT) 11L, Alkaline Phosphatase 69, C-Reactive Protein, Quantitative 7.2H, Pro-B-Type Natriuretic Peptide 64554C, Total Protein 6.3L, Albumin 2.4L, Globulin 3.9, Albumin/Globulin Ratio 0.6L Height (Feet): 5 Height (Inches): 6.00 Weight (Pounds): 180 Objective General: alert, cooperative, no distress, appears stated age Head: normocephalic, without obvious abnormality, atraumatic Eyes: conjunctivae/corneas clear. PERRL, EOM's intact Throat: lips, mucosa, and tongue normal. MMM Neck: supple, symmetrical, trachea midline, and no JVD Lungs: clear to auscultation bilaterally Heart: regular rate and rhythm, S1, S2 normal, no murmur, click, rub or gallop Abdomen: soft, non-tender, non-distended, bowel sounds normal; no masses or organomegaly Extremities: extremities normal, atraumatic, no cyanosis or edema Pulses: 2+ and symmetric Skin: skin color, texture, turgor normal; no rashes or lesions Neurologic: grossly normal, no focal deficits Angela James MD Sep 03, 2018 20:15
--- NOTE | 2018-09-03 21:30 | NUR ---
NURSE NOTES: Patient asking wether he could be DC today, was hoping to ask MD Erika regarding the matter. Spoke with Carmela Carvalho MD covering for edgar James wait in the morning to confirm possible DC planning after seeing MD. Patient aware and notified. Will continue to monitor
[2018-09-03] MEDS: LORazepam Inj 2mg/ml 1ml IV PRN (22:33)
[2018-09-04] VITALS: BP 158/76
[2018-09-04] MEDS: Morphine Sulfate 2mg/ml Inj(IV/IM USE ONLY) IVP PRN (00:43)
--- NOTE | 2018-09-04 02:41 | NUR ---
NURSE NOTES: Patient in bed asleep with no S/S of acute pain or discomfort at this time. Will continue to monitor
[2018-09-04 04:00] VITALS: BP 151/80
[2018-09-04 06:00] VITALS: BP 148/65
[2018-09-04] MEDS: NovoLOG Insulin Flexpen SUBQ SCH ×2 (06:14→11:49)
[2018-09-04] MEDS: HydrALAZINE 25mg tab ORAL SCH ×2 (06:14→14:51)
[2018-09-04 08:00] VITALS: BP 123/68
--- NOTE | 2018-09-04 08:00 | NUR ---
HAND-OFF: Report given to Selwyn Vela RN. Pt is resting in bed in stable condition. No acute distress noted. Endorsed plan of care.
--- NOTE | 2018-09-04 08:02 | NUR ---
NURSE NOTES: Pt in bed in low position, call light at bedside, bed alarm on, IV infiltrated according to night nurse and upon assessing IV pt has pain and swelling when flushing will discontinue and start another one as pt is ok with that, pt refused vital signs, pt has breakfast at bedside, pt denies overall pain, pt Ox4 calm and cooperative, no s/s of distress or sob noted.
[2018-09-04] MEDS: Eliquis 2.5mg tablet ORAL SCH (10:17)
[2018-09-04] MEDS: Tamsulosin 0.4mg cap ORAL SCH (10:18)
[2018-09-04] MEDS: Docusate 100mg cap ORAL SCH ×2 (10:18→13:00)
[2018-09-04] MEDS: Aspirin EC 81mg tab ORAL SCH (10:18)
[2018-09-04 12:00] VITALS: BP 142/68
--- NOTE | 2018-09-04 13:26 | NUR ---
HAND-OFF: Report given to Nic Montesinos.
--- NOTE | 2018-09-04 14:00 | NUR ---
NURSE NOTES: Dr. West seen and examined patient. Patient voiced desire to leave AMA. Dr. West acknowledged and explained risks and possible negative outcomes of leaving hospital Against Medical Advice. Patient continues to request to leave AMA. Noted.
--- NOTE | 2018-09-04 14:26 | Nephrology Progress Note ---
Assessment/Plan Problem List: (1) CKD (chronic kidney disease) stage 5, GFR less than 15 ml/min Assessment: CR LOWERING GFR rising (2) Hypertensive kidney disease (3) Anemia in chronic kidney disease (CKD) Assessment Known CKD now superimposed acute renal failure cr down to 4.4 4+ Proteinuria HTN ooc DM Apparent right renal solid lesion, more questionable left renal solid lesion. Splenomegaly L1 vertebral body wedge/vertebra plana compression fracture deformity resulting in 60% height loss. bilateral superficial femoral arterial stents, Plan no labs today STOP CLONIDINE PATIENT HAS PERIODIC BRADYCARDIA Hydrate Flomax Kidney RICARDO pending, urine studies Avoid nephrotoxics Anemia retana fluid challenge adjust bp meds per orders Subjective ROS Limited/Unobtainable: No Constitutional: Reports: malaise Objective Objective Last 24 Hour Vital Signs Date Time Temp Pulse Resp B/P (MAP) Pulse Ox O2 Delivery O2 Flow Rate FiO2 09/04/18 12:00 97.5 76 18 142/68 (92) 97 09/04/18 11:37 81 09/04/18 10:18 75 123/68 09/04/18 08:26 Nasal Cannula 2.0 09/04/18 08:00 98.0 75 18 123/68 (86) 99 09/04/18 07:39 78 09/04/18 06:14 148/65 09/04/18 06:00 86 09/04/18 06:00 97.6 78 20 148/65 (92) 99 09/04/18 04:00 98.1 82 20 151/80 (103) 97 09/04/18 00:00 97 09/04/18 00:00 97.8 101 19 158/76 (103) 95 09/03/18 21:14 167/89 09/03/18 21:00 Nasal Cannula 2.0 09/03/18 20:00 101 09/03/18 20:00 98.2 102 20 167/89 (115) 98 09/03/18 17:13 100 150/78 09/03/18 15:53 97.7 100 18 150/78 (102) 99 09/03/18 15:35 101 09/03/18 15:34 97.7 Intake and Output 09/03/18 09/04/18 19:00 07:00 Intake Total 1350 ml 200 ml Output Total 300 ml Balance 1350 ml -100 ml Intake Oral 600 ml 200 ml IV Total 750 ml Output Urine Total 300 ml # Voids 3 2 Height (Feet): 5 Height (Inches): 6.00 Weight (Pounds): 180 Cardiovascular: normal rate Respiratory/Chest: decreased breath sounds Abdomen: soft Gilles Lebron MD Sep 04, 2018 14:26
[2018-09-04 14:51] VITALS: BP 142/62
--- NOTE | 2018-09-04 15:15 | NUR ---
NURSE NOTES: Patient signed Against Medical Advice document. Explained risks and possible negative outcomes of leaving AMA. Patient continued to request to leave AMA, respected patient rights. Primary physician aware. Copy of AMA is placed in chart. IV access, ID band removed. Heart monitor removed and placed in chart. Noted.
--- NOTE | 2018-09-04 15:21 | Infectious Diseases Prog Note ---
Assessment/Plan Assessment/Plan ASSESSMENT AND PLAN: 1. possible sepsis, leukocytosis, fevers, sirs +, ? viral syndrome - blood cultures and w/u negative - stable off ceftriaxone - fevers improved, ua negative, chest x-ray - negative, influenza negative - monitor labs, leukocytosis resolved 2. ckd - renal transplant list per patient 3. Hypokalemia. 4. Anemia. 5. Hypertension. 6. Diabetes. Blood sugar treatment for diabetes per primary and hypertension per primary and consultants. 7. Hypothyroidism. 8. Atrial fibrillation history. 9. Chest pain. Workup per primary and consultants. 10. No known drug allergies. 11. Social history is negative. 12. Family history is noncontributory. 13. MAR was noted. 14. Case discussed with RN. 15. Continue treatment per primary consultants. Subjective Constitutional: Denies: fever, chills, fatigue HEENT: Denies: congestion Respiratory: Denies: shortness of breath Cardiovascular: Denies: chest pain Gastrointestinal/Abdominal: Denies: nausea, vomiting Genitourinary: Denies: dysuria Neurologic: Denies: headache Psychiatric: Denies: depression Skin: Denies: rash Hematologic: Denies: bleeding Musculoskeletal: Denies: pain Allergies: Coded Allergies: No Known Allergies (Unverified , 08/29/18) Objective Vital Signs Last 24 Hour Vital Signs Date Time Temp Pulse Resp B/P (MAP) Pulse Ox O2 Delivery O2 Flow Rate FiO2 09/04/18 14:51 142/62 09/04/18 12:00 97.5 76 18 142/68 (92) 97 09/04/18 11:37 81 09/04/18 10:18 75 123/68 09/04/18 08:26 Nasal Cannula 2.0 09/04/18 08:00 98.0 75 18 123/68 (86) 99 09/04/18 07:39 78 09/04/18 06:14 148/65 09/04/18 06:00 86 09/04/18 06:00 97.6 78 20 148/65 (92) 99 09/04/18 04:00 98.1 82 20 151/80 (103) 97 09/04/18 00:00 97 09/04/18 00:00 97.8 101 19 158/76 (103) 95 09/03/18 21:14 167/89 09/03/18 21:00 Nasal Cannula 2.0 09/03/18 20:00 101 09/03/18 20:00 98.2 102 20 167/89 (115) 98 09/03/18 17:13 100 150/78 09/03/18 15:53 97.7 100 18 150/78 (102) 99 09/03/18 15:35 101 09/03/18 15:34 97.7 Height (Feet): 5 Height (Inches): 6.00 Weight (Pounds): 180 General Appearance: no acute distress HEENT: normocephalic, atraumatic, anicteric Respiratory/Chest: lungs clear, normal breath sounds, no respiratory distress, no accessory muscle use Cardiovascular: normal peripheral pulses, regular rhythm, no gallop/murmur, no JVD Abdomen: normal bowel sounds, soft, non tender, no organomegaly, non distended Genitourinary: other - no rivas Extremities: no cyanosis Skin: no rash Neurologic/Psychiatric: manager marketing II-XII 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 Heart size is upper limits of normal Impression: No acute process Microbiology Date/Time Source Procedure Growth Status 08/31/18 16:35 Blood Blood Culture - Preliminary NO GROWTH AFTER 72 HOURS Resulted 09/01/18 01:15 Nasal Nares Influenza Types A,B Antigen (AWILDA) - Final Complete Labs Test 09/02/18 06:00 09/03/18 06:19 Sodium Level 141 MMOL/L (136-145) 142 MMOL/L (136-145) Potassium Level 3.0 MMOL/L (3.5-5.1) 3.8 MMOL/L (3.5-5.1) Chloride Level 106 MMOL/L (98-107) 109 MMOL/L (98-107) Carbon Dioxide Level 27 MMOL/L (21-32) 23 MMOL/L (21-32) Anion Gap 8 mmol/L (5-15) 11 mmol/L (5-15) Blood Urea Nitrogen 69 mg/dL (7-18) 55 mg/dL (7-18) Creatinine 3.8 MG/DL (0.55-1.30) 3.1 MG/DL (0.55-1.30) Estimat Glomerular Filtration Rate 16.2 mL/min (>60) 20.5 mL/min (>60) Glucose Level 151 MG/DL (74-106) 139 MG/DL (74-106) Calcium Level 8.5 MG/DL (8.5-10.1) 8.7 MG/DL (8.5-10.1) Phosphorus Level 3.1 MG/DL (2.5-4.9) 3.1 MG/DL (2.5-4.9) Total Bilirubin 0.3 MG/DL (0.2-1.0) 0.2 MG/DL (0.2-1.0) Aspartate Amino Transf (AST/SGOT) 14 U/L (15-37) 15 U/L (15-37) Alanine Aminotransferase (ALT/SGPT) 19 U/L (12-78) 11 U/L (12-78) Alkaline Phosphatase 65 U/L (46-116) 69 U/L (46-116) Total Protein 6.1 G/DL (6.4-8.2) 6.3 G/DL (6.4-8.2) Albumin 2.2 G/DL (3.4-5.0) 2.4 G/DL (3.4-5.0) Globulin 3.9 g/dL 3.9 g/dL Albumin/Globulin Ratio 0.6 (1.0-2.7) 0.6 (1.0-2.7) White Blood Count 6.2 K/UL (4.8-10.8) Red Blood Count 4.03 M/UL (4.70-6.10) Hemoglobin 10.3 G/DL (14.2-18.0) Hematocrit 31.6 % (42.0-52.0) Mean Corpuscular Volume 78 FL (80-99) Mean Corpuscular Hemoglobin 25.5 PG (27.0-31.0) Mean Corpuscular Hemoglobin Concent 32.6 G/DL (32.0-36.0) Red Cell Distribution Width 13.0 % (11.6-14.8) Platelet Count 212 K/UL (150-450) Mean Platelet Volume 6.3 FL (6.5-10.1) Neutrophils (%) (Auto) 75.2 % (45.0-75.0) Lymphocytes (%) (Auto) 13.6 % (20.0-45.0) Monocytes (%) (Auto) 6.4 % (1.0-10.0) Eosinophils (%) (Auto) 3.9 % (0.0-3.0) Basophils (%) (Auto) 0.9 % (0.0-2.0) Uric Acid 7.2 MG/DL (2.6-7.2) Magnesium Level 1.8 MG/DL (1.8-2.4) C-Reactive Protein, Quantitative 7.2 mg/dL (0.00-0.90) Pro-B-Type Natriuretic Peptide 06359 pg/mL (0-125) Current Medications Medications (Trade) Dose Ordered Sig/Swathi Route PRN Reason Start Time Stop Time Status Last Admin Dose Admin Acetaminophen (Tylenol) 650 mg Q4H PRN ORAL Mild Pain (Pain Scale 1-3) 08/29/18 17:30 09/28/18 17:14 09/03/18 01:06 Allopurinol (Allopurinol) 300 mg DAILY ORAL 09/01/18 09:00 10/01/18 08:59 09/04/18 10:19 Apixaban (Eliquis) 5 mg BID ORAL 08/30/18 09:00 09/29/18 08:59 09/04/18 10:17 Aspirin (Ecotrin) 81 mg DAILY ORAL 08/30/18 09:00 09/29/18 08:59 09/04/18 10:18 Dextrose (Dextrose 50%) 25 ml Q30M PRN IV Hypoglycemia 08/29/18 17:30 09/28/18 17:29 Dextrose (Dextrose 50%) 50 ml Q30M PRN IV Hypoglycemia 08/29/18 17:30 09/28/18 17:29 Dextrose/Sodium Chloride 1,000 ml @ 75 mls/hr [id number] IV 08/30/18 14:00 09/29/18 13:59 09/03/18 21:15 Docusate Sodium (Colace) 100 mg TID ORAL 08/31/18 13:00 09/28/18 20:59 09/04/18 10:18 Hydralazine HCl (Apresoline) 75 mg Q8HR ORAL 09/02/18 14:00 09/30/18 13:59 09/04/18 14:51 Insulin Aspart (NovoLOG) BEFORE MEALS AND HS SUBQ 08/29/18 21:00 09/28/18 20:59 09/04/18 11:49 Levothyroxine Sodium (Synthroid) 100 mcg ACBREAKFAST ORAL 08/30/18 06:30 09/29/18 06:29 Lorazepam (Ativan 2mg/ml 1ml) 0.5 mg Q4H PRN IV For Anxiety 08/29/18 17:30 09/05/18 17:14 09/03/18 22:33 Metoclopramide HCl (Reglan) 10 mg Q6H PRN IVP Nausea & Vomiting 09/03/18 15:00 10/03/18 14:59 Minoxidil (Loniten) 2.5 mg Q4H PRN ORAL bp over 165 syst 08/31/18 12:00 09/30/18 11:59 09/03/18 03:21 Morphine Sulfate (Morphine Sulfate) 2 mg Q4H PRN IVP Severe Pain (Pain Scale 7-10) 08/29/18 21:00 09/05/18 20:59 09/04/18 00:43 Nifedipine (Procardia XL) 30 mg BID ORAL 09/02/18 18:00 10/02/18 17:59 09/04/18 10:18 Ondansetron HCl (Zofran) 4 mg Q6H PRN IVP Nausea & Vomiting 08/29/18 17:30 09/28/18 17:14 09/03/18 03:12 Pantoprazole (Protonix) 40 mg EVERY 12 HOURS ORAL 08/30/18 21:00 09/29/18 20:59 09/04/18 10:18 Potassium Chloride (K-Dur) 40 meq TWICE A DAY ORAL 09/02/18 18:00 10/02/18 17:59 09/04/18 10:18 Sumatriptan Succinate (Imitrex) 6 mg DAILYPRN PRN SUBQ For Headache 09/03/18 15:00 10/03/18 14:59 Tamsulosin HCl (Flomax) 0.4 mg BID ORAL 08/31/18 18:00 09/29/18 20:59 09/04/18 10:18 Rodrigue Teixeira MD Sep 04, 2018 15:21
[2018-09-04] MEDS ORDERED: D5NS 1000ml IV ONE (16:00)
--- NOTE | 2018-09-04 16:23 | General Progress Note ---
Assessment/Plan Assessment/Plan Pt stated that he wanted to be discharged home, explained that he was bradycardic to 20s last night, however still wanted to leave against medical advise. Explained to pt the risk of leaving AMA, including , pt verbalized understanding #Chest pain without acutely ischemic EKG and negative initial trop #history of Atrial fibrillation on Eliquis #history of HTN #Bradycardia -Cont telemetry -serial cardiac enzymes - unremarkable -sotalol discontinued per cardiology -hold ACEI/ARB/Lasix and monitor renal function -Appreciate cardiology consult -may need PPM - pt is considering it, pending insurance approval #Leukocytosis #SIRS -Unclear source of SIRS, -no definite infectious process identified at this time -trend temp curve -ID consult appreciated -cont abx per ID #Hypokalemia -repleted -CTM #Headache -treat symptomatically -CT head negative #CKD, unknown baseline creatinine #Hypokalemia #BPH -Cr trending down -hold nephrotoxic meds -Nephrology consult appreciated #Hypertension -Clonidine discontinued due to episodes of bradycardia -BP meds adjusted per nephrology -cont hydralazine and procardia #Type 2 DM -lispro sliding scale for now VTE PPx Eliquis Full Code Subjective Allergies: Coded Allergies: No Known Allergies (Unverified , 08/29/18) Subjective No acute overnight events, Pt stated that he wanted to be discharged home, explained that he was bradycardic to 20s last night, however still wanted to leave against medical advise. Explained to pt the risk of leaving AMA, including , pt verbalized understanding Objective Last 24 Hour Vital Signs Date Time Temp Pulse Resp B/P (MAP) Pulse Ox O2 Delivery O2 Flow Rate FiO2 09/04/18 14:51 142/62 09/04/18 12:00 97.5 76 18 142/68 (92) 97 09/04/18 11:37 81 09/04/18 10:18 75 123/68 09/04/18 08:26 Nasal Cannula 2.0 09/04/18 08:00 98.0 75 18 123/68 (86) 99 09/04/18 07:39 78 09/04/18 06:14 148/65 09/04/18 06:00 86 09/04/18 06:00 97.6 78 20 148/65 (92) 99 09/04/18 04:00 98.1 82 20 151/80 (103) 97 09/04/18 00:00 97 09/04/18 00:00 97.8 101 19 158/76 (103) 95 09/03/18 21:14 167/89 09/03/18 21:00 Nasal Cannula 2.0 09/03/18 20:00 101 09/03/18 20:00 98.2 102 20 167/89 (115) 98 09/03/18 17:13 100 150/78 Intake and Output 09/03/18 09/04/18 19:00 07:00 Intake Total 1350 ml 200 ml Output Total 300 ml Balance 1350 ml -100 ml Intake Oral 600 ml 200 ml IV Total 750 ml Output Urine Total 300 ml # Voids 3 2 Height (Feet): 5 Height (Inches): 6.00 Weight (Pounds): 180 Objective General: alert, cooperative, no distress, appears stated age Head: normocephalic, without obvious abnormality, atraumatic Eyes: conjunctivae/corneas clear. PERRL, EOM's intact Throat: lips, mucosa, and tongue normal. MMM Neck: supple, symmetrical, trachea midline, and no JVD Lungs: clear to auscultation bilaterally Heart: regular rate and rhythm, S1, S2 normal, no murmur, click, rub or gallop Abdomen: soft, non-tender, non-distended, bowel sounds normal; no masses or organomegaly Extremities: extremities normal, atraumatic, no cyanosis or edema Pulses: 2+ and symmetric Skin: skin color, texture, turgor normal; no rashes or lesions Neurologic: grossly normal, no focal deficits Angela James MD Sep 04, 2018 16:23
--- NOTE | 2018-09-04 16:38 | Cardiac Electrophysiology PN ---
Assessment/Plan Assessment/Plan 1. Paroxysmal atrial flutter. The patient is on apixaban 5 mg b.i.d. Off Sotalol for bradycardia Dropped to 20s-30s after converted to SR at rate 40. Was told needs a pacer by a different grocery sacker but refused 2 weeks ago. Refusing to stay in hospital for pacer. Signing AMA. 2. Hypertension. Off Benazepril for renal failure On Procardia XL 30 bid and Hydralazine 75 q 8hr 3. Bradycardia, heart rate 40s off Sotalol 4. Renal failure. Cr 3.1 now Further evaluation by Dr. Lebron. Could be due to [place] cardia and low out put failure 5. Diabetes. DW Dr. James Patient signed out AMA Subjective Subjective Refusing Pacer implant and wants it done to be done by his grocery sacker. Signing out AMA Objective Last 24 Hour Vital Signs Date Time Temp Pulse Resp B/P (MAP) Pulse Ox O2 Delivery O2 Flow Rate FiO2 09/04/18 14:51 142/62 09/04/18 12:00 97.5 76 18 142/68 (92) 97 09/04/18 11:37 81 09/04/18 10:18 75 123/68 09/04/18 08:26 Nasal Cannula 2.0 09/04/18 08:00 98.0 75 18 123/68 (86) 99 09/04/18 07:39 78 09/04/18 06:14 148/65 09/04/18 06:00 86 09/04/18 06:00 97.6 78 20 148/65 (92) 99 09/04/18 04:00 98.1 82 20 151/80 (103) 97 09/04/18 00:00 97 09/04/18 00:00 97.8 101 19 158/76 (103) 95 09/03/18 21:14 167/89 09/03/18 21:00 Nasal Cannula 2.0 09/03/18 20:00 101 09/03/18 20:00 98.2 102 20 167/89 (115) 98 09/03/18 17:13 100 150/78 Intake and Output 09/03/18 09/04/18 19:00 07:00 Intake Total 1350 ml 200 ml Output Total 300 ml Balance 1350 ml -100 ml Intake Oral 600 ml 200 ml IV Total 750 ml Output Urine Total 300 ml # Voids 3 2 Objective Isidoro Magallanes MD Sep 04, 2018 16:38
--- NOTE | 2018-09-05 12:47 | Discharge Summary ---
Discharge Summary Discharge Summary _ DATE OF ADMISSION: 08/29/2018 DATE OF DISCHARGE: 09/04/2018 CONSULTANTS: Dr. Isidoro Lebron BRIEF HOSPITAL COURSE: Patient is a 63-year-old male, with history of hypertension, atrial fibrillation , type 2 diabetes and CKD, presented to ED with substernal chest pain and abdominal pain for the past 2 days. He described the pain to be left-sided, abdominal pain was diffuse. He denied fever or chills. He had nausea but no vomiting. He denied cough or congestion. Denies dysuria or hematuria. He reported severe headache but without neck stiffness or photophobia. There was no visual disturbance. No weakness. On evaluation at ED, blood work showed leukocytosis, WBC 16.8. Hemoglobin and hematocrit were stable. Potassium was 3.0, BUN 71, creatinine 4. Troponin was negative. EKG showed a flutter. Chest x-ray with no acute process. CT of the abdomen and pelvis did not show any definite acute process. There was numerous renal cysts bilaterally. Apparent right renal solid lesion, more questionable left renal solid lesion. He was admitted for evaluation of chest pain and leukocytosis. He underwent cardiac evaluation. Serial troponin was monitored. He was continued on aspirin. He was started on statins. Sotalol was discontinued for bradycardia as well as benazepril in view of renal failure. He was continued on apixaban 5 mg twice daily. He was given Procardia and hydralazine for blood pressure control. Echocardiogram showed EF 60-65%. Patient had high-grade fever. ID was consulted. Patient had elevated white count, T-max 102.4. He was started empirically on Rocephin for possible sepsis. He complained of headache. Head CT was negative. Blood culture was negative. Influenza screen was negative. Fever and leukocytosis resolved. Antibiotics were discontinued. Troponin levels were negative. Patient's heart rate dropped to 20s-30s, then after converted to sinus rhythm at a rate of 40s. Patient was told he needed pacemaker placement. Patient refused pacer implant. Explained risks of leaving AMA, including . Patient verbalized understanding and still left AGAINST MEDICAL ADVICE. FINAL DIAGNOSES: Chest pain without acutely ischemic EKG Paroxysmal atrial fibrillation on Eliquis Hypertension Bradycardia Leukocytosis/SIRS Hypokalemia Headache CKD Hypertension BPH Type 2 diabetes mellitus Renal cysts DISPOSITION: Patient left against medical advise. I have been assigned to complete a discharge summary on this account, I was not involved with the patient's management. Jacquie Lerma NP Sep 05, 2018 12:47
== END 2018-09-04 16:01 | disposition home or self-care (01) | DRG 201 ==
LOC: EDBD 08:43 → EMR 08:57 → 2E 15:17 → EDBEDREQ 16:28 → EMR 17:13 → 2E 17:21 → ENPENDDIS 09-04 15:30
DX: I48.0 Paroxysmal atrial fibrillation (principal); N17.9 Acute kidney failure, unspecified; E11.22 Type 2 diabetes mellitus with diabetic chronic kidney disease; R65.10 Systemic inflammatory response syndrome (SIRS) of non-infectious origin without acute organ dysfunction; N28.1 Cyst of kidney, acquired; R16.1 Splenomegaly, not elsewhere classified; I48.92 Unspecified atrial flutter; R00.1 Bradycardia, unspecified; R07.9 Chest pain, unspecified; S32.010A Wedge compression fracture of first lumbar vertebra, initial encounter for closed fracture; I44.0 Atrioventricular block, first degree; Z79.01 Long term (current) use of anticoagulants; E87.6 Hypokalemia; R51 Headache; I12.9 Hypertensive chronic kidney disease with stage 1 through stage 4 chronic kidney disease, or unspecified chronic kidney disease; N18.9 Chronic kidney disease, unspecified; N40.0 Benign prostatic hyperplasia without lower urinary tract symptoms; R80.9 Proteinuria, unspecified; X58.XXXA Exposure to other specified factors, initial encounter; R10.9 Unspecified abdominal pain; R07.89 Other chest pain
CPT/HCPCS: 36415; 70450; 71045; 74176; 76770; 80053; 80061; 81003; 82550; 82553; 82607; 82728; 82746; 82962; 82977; 83036; 83540; 83550; 83605; 83735; 83880; 84100; 84153; 84300; 84443; 84484; 84550; 85007; 85025; 86140; 86710; 87040; 89050; 93005; 93306; 96374; 96375; 99285; J1815; J2405; J2765; J8499